=== PATIENT | male | born 1960 | race Caucasian/White ===

== ENCOUNTER 2016-11-13 03:26 | Inpatient (IN) | payer OTHER ==
[~2016-11-13] VITALS: Ht 165.1 cm; Wt 75.7 kg
--- NOTE | 2016-11-13 03:40 | NUR ---
to bed 5 a 56 yo male bibra with c/o respiratory distress. however upon arriaval to er, patient has no sob. breathing even and unlabored. with trach to mech vent, rosario well to current settings with o2 saturation greater than 95%. patient noted with low bp at 70's. hospice team lead on. gowned. awaiting for er md emanuel.
[2016-11-13] MEDS ORDERED: IV NS 0.9% 1,000 ML ONE ×2 (03:43→04:10)
[2016-11-13] MEDS ORDERED: IV SET PRIMARY PUMP SET 1 EA INFUS.SET MC ONE ×5 (03:43→12:03)
[2016-11-13] MEDS ORDERED: IV NS 0.9% 1,000 ML BAG IV ONE ×2 (04:00→04:30)
[2016-11-13 04:10] LABS: BASOPHILS % (AUTO) 0.2 % (0.0-2.0); EOSINOPHILS % (AUTO) 0.1 % (0.0-6.0); HEMATOCRIT 29 % (39-51); HEMOGLOBIN 9.4 g/dL (13.5-17.5); LYMPHOCYTES # (AUTO) 0.4 /CMM (0.8-4.8); LYMPHOCYTES % (AUTO) 2.7 % (20.0-44.0); MEAN CORPUSCULAR HEMOGLOBIN 30 PG (26.0-33.0); MEAN CORPUSCULAR HGB CONC 33 g/dl (31.0-36.0); MEAN CORPUSCULAR VOLUME 90 fL (80-96); MONOCYTES # (AUTO) 0.7 /CMM (0.1-1.30); MONOCYTES % (AUTO) 4.8 % (2.0-12.0); NEUTROPHILS # (AUTO) 12.9 /CMM (1.8-8.9); NEUTROPHILS % (AUTO) 92.2 % (43.0-81.0); PLATELET COUNT (AUTO) 296 /CMM (150-450); RDW COEFFICIENT OF VARIATION 14.7 (11.5-15.0); RED BLOOD CELL COUNT(AUTO) 3.15 MIL/uL (4.5-6.0)
[2016-11-13] MEDS ORDERED: IV SET PRIMARY 1 EA INFUS.SET MC ONE (04:10)
[2016-11-13] MEDS ORDERED: IV D5W 0 ML IV ONE (04:14)
[2016-11-13] MEDS ORDERED: VANCOMYCIN 1 GM VIAL ONE (04:15)
[2016-11-13 04:22] LABS: INR 0.93 (0.87-1.13); PROTHROMBIN TIME 9.9 SECS (9.5-12.7)
--- NOTE | 2016-11-13 04:23 | NUR ---
TRANSPORT RT INFORMED ME VENT SETTINGS NOTED. PT IS NOT AGITATED. WILL CONT TO MONITOR. Addendum: 11/13/16 at 0424 by FRANCISCO REBOLLEDO RT Amended: Links added.
[2016-11-13 04:28] LABS: LACTIC ACID 1.8 mmol/L (0.4-2.0)
[2016-11-13 04:29] LABS: TROPONIN I 0.075 ng/mL (0.00-0.056)
[2016-11-13] MEDS ORDERED: VANCOMYCIN 1 GM in IV D5W 250 ML IV ONE (04:30)
[2016-11-13] MEDS ORDERED: PIPERACILLIN /TAZOBACTAM 3.375 G in IV D5W 50 ML IV ONE (04:30)
[2016-11-13 04:35] LABS: ALBUMIN 2.6 g/dL (3.4-5.0); BILIRUBIN,DIRECT 0.1 mg/dL (0.0-0.2); BILIRUBIN,TOTAL 0.4 mg/dL (0.2-1.0); CALCIUM, SERUM 8.7 mg/dL (8.5-10.1); CREATININE 1.3 mg/dL (0.6-1.3); POTASSIUM 5.2 mmol/L (3.5-5.1); TOTAL PROTEIN, SERUM 6.3 g/dL (6.4-8.2)
[2016-11-13] MEDS ORDERED: PIPERACILLIN /TAZOBACTAM 3.375 G VIAL IV ONE (04:46)
[2016-11-13] MEDS ORDERED: IV NS 0.9% 250 ML IV ONE (04:56)
[2016-11-13] MEDS ORDERED: IOHEXOL-300 100 ML VIAL IV ONE (04:56)
--- NOTE | 2016-11-13 05:04 | NUR ---
patient to ct.
--- NOTE | 2016-11-13 05:23 | NUR ---
Nhi Armijo MD called
--- NOTE | 2016-11-13 05:34 | NUR ---
patient at this time is responsive to tactile/light pain stimuli, opens eyes, and have spontaneous movements.
[2016-11-13 05:50] LABS: APPEARANCE,URINE CLEAR (CLEAR); BILIRUBIN,URINE NEGATIVE (NEGATIVE); BLOOD, URINE 2+ Ery/uL (NEGATIVE); COLOR,URINE YELLOW (YELLOW); KETONES,URINE NEGATIVE (NEGATIVE); LEUKOCYTE ESTERASE ,URINE NEGATIVE (NEGATIVE); NITRITE, URINE NEGATIVE (NEGATIVE); PROTEIN,URINE NEGATIVE (NEGATIVE); UGLUCOSE NEGATIVE (NEGATIVE); UROBILINOGEN,URINE 0.2 EU/dL (0.2)
[2016-11-13 05:55] LABS: ADD URINE CULTURE NO; BACTERIA,URINE Rare /HPF (None Seen); SQUAMOUS EPITHELIAL CELL,UR Few /HPF (None Seen); WBC,URINE 0-3 /HPF (0-3)
[2016-11-13] MEDS ORDERED: ZOLPIDEM TARTRATE 5 MG TABLET PO PRN (06:00)
[2016-11-13] MEDS ORDERED: MAG HYDROX/AL HYDROX/SIMETH 30 ML UDC PO PRN (06:00)
[2016-11-13] MEDS ORDERED: Z GUARD REMEDY 2 OZ OINT TP PRN (06:00)
[2016-11-13] MEDS ORDERED: ONDANSETRON HCL/PF 4 MG/2 ML VIAL IVP PRN (06:00)
[2016-11-13] MEDS ORDERED: MAGNESIUM HYDROXIDE 30 ML UDC PO PRN (06:00)
[2016-11-13] MEDS ORDERED: ENOXAPARIN SODIUM 40 MG/0.4 ML DISP.SYRIN SQ ONE (06:43)
--- NOTE | 2016-11-13 07:06 | NUR ---
Report given to Preston BEGUM.
--- NOTE | 2016-11-13 07:08 | NUR ---
[facility] () phone number is [phone].
[2016-11-13] MEDS: PANTOPRAZOLE 40 MG TABLET.DR PO SCH (07:30)
--- NOTE | 2016-11-13 07:36 | NUR ---
MECH VENT AC 12 TV 500 FIO2 40% PEEP 5
--- NOTE | 2016-11-13 08:00 | NUR ---
LOCKE FR [address] TELLEZ 1200 ML OUTPUT
--- NOTE | 2016-11-13 08:30 | NUR ---
GAVE REPORT TO [facility] [address] DR PETAR PEREZ ADMITTING. DX SEPSIS. TRANSFER VIA ACLS PROTOCOL WITH RT , RN AND ERT.
[2016-11-13] MEDS ORDERED: MAG30ORA GT (08:32)
[2016-11-13] MEDS ORDERED: TRAM50TA2 GT (08:32)
[2016-11-13] MEDS ORDERED: MAGN400O6 GT (08:32)
[2016-11-13] MEDS ORDERED: TIOT18CA3 IH (08:32)
[2016-11-13] MEDS ORDERED: PANT40SU GT (08:32)
[2016-11-13] MEDS ORDERED: HYDR-552 GT (08:32)
[2016-11-13] MEDS ORDERED: PRIM50TA GT (08:32)
[2016-11-13] MEDS ORDERED: SENN8.6T6 GT (08:32)
[2016-11-13] MEDS ORDERED: HYDR-4075 GT (08:32)
[2016-11-13] MEDS ORDERED: DEXA1TAB GT (08:32)
[2016-11-13] MEDS ORDERED: DOCU50LI GT (08:32)
[2016-11-13] MEDS ORDERED: ONDA-25 GT (08:32)
[2016-11-13] MEDS ORDERED: DEXA4TAB GT (08:32)
[2016-11-13] MEDS ORDERED: MORP15TA GT (08:32)
[2016-11-13] MEDS ORDERED: DIPH25CA83 GT (08:32)
[2016-11-13] MEDS ORDERED: ENOX40DI SQ (08:32)
[2016-11-13] MEDS ORDERED: MULT-213 GT (08:32)
--- NOTE | 2016-11-13 09:00 | NUR ---
pt [facility] from E.R with dx of [facility] to[facility] well.G.tube in place with feeding on hold r/t abdominal distension.beaver catheter cdi draining bright red urine. m.d aware.safety measures in place.will continue to monitor for changes
[2016-11-13] MEDS ORDERED: FEE PK DOSING 1 MIN EA MC ONE (09:13)
[2016-11-13] MEDS ORDERED: SECONDARY IV SET 1 EA INFUS.SET MC ONE ×2 (12:03→17:07)
[2016-11-13] MEDS: PIPERACILLIN /TAZOBACTAM 3.375 G in IV D5W 50 ML IV SCH ×2 (12:10→17:17)
[2016-11-13] MEDS: IV NS 0.9% 1,000 ML IV PRN (12:10)
[2016-11-13] MEDS: ENOXAPARIN SODIUM 40 MG/0.4 ML DISP.SYRIN SQ SCH (12:16)
[2016-11-13] MEDS ORDERED: PIPERACILLIN /TAZOBACTAM 4.5 G in IV D5W 50 ML IV SCH (13:00)
[2016-11-13] MEDS: VANCOMYCIN 1 GM in IV D5W 250 ML IV SCH (17:14)
[2016-11-13 17:47] LABS: IRON, SERUM 67 ug/dl (50-175); TOTAL IRON BINDING CAPACITY 228 ug/dl (250-450)
[2016-11-13 18:30] LABS: HEMOGLOBIN 9.7 g/dL (13.5-17.5); PLATELET COUNT (AUTO) 311 /CMM (150-450)
[2016-11-13 18:37] LABS: BASOPHILS % (AUTO) 0.2 % (0.0-2.0); EOSINOPHILS % (AUTO) 0.1 % (0.0-6.0); HEMATOCRIT 30 % (39-51); LYMPHOCYTES # (AUTO) 0.7 /CMM (0.8-4.8); LYMPHOCYTES % (AUTO) 4.8 % (20.0-44.0); MEAN CORPUSCULAR HEMOGLOBIN 30 PG (26.0-33.0); MEAN CORPUSCULAR HGB CONC 33 g/dl (31.0-36.0); MEAN CORPUSCULAR VOLUME 91 fL (80-96); MONOCYTES # (AUTO) 0.5 /CMM (0.1-1.30); MONOCYTES % (AUTO) 3.7 % (2.0-12.0); NEUTROPHILS % (AUTO) 91.2 % (43.0-81.0); RDW COEFFICIENT OF VARIATION 14.9 (11.5-15.0); RED BLOOD CELL COUNT(AUTO) 3.27 MIL/uL (4.5-6.0); WHITE BLOOD COUNT (AUTO) 14.2 K/uL (4.3-11.0)
[2016-11-13 18:58] LABS: ANISOCYTOSIS 1+; LYMPHOCYTES % (MANUAL) 6 % (16-48); MONOCYTES % (MANUAL) 6 % (0-11.0); NEUTROPHILS % (MANUAL) 88 (42-76); PLATELET ESTIMATE ADEQUATE
--- NOTE | 2016-11-13 19:00 | NUR ---
RN INITIAL NOTES RECEIVED PATIENT IN BED, ASLEEP, EASILY AROUSABLE TO NAME OR LIGHT TOUCH. PATIENT IS ALERT AND ORIENTED X2, NONVERBAL TO TRACH, BUT ABLE TO NOD YES/NO, SOMETIMES MOUTHS WORDS. TRACH MIDLINE AND INTACT, ON MECHANICAL VENT AT PRESCRIBED SETTING, TOLERATING WELL, FREE FROM ANY S/S OF RESPIRATORY DISTRESS. NOTED WITH MULTIPLE SKIN CONDITIONS, WILL DOCUMENT PER PROTOCOL. JEANNIE PICC PATENT AND INTACT, FLUSHED WITH NS, ONGOING IVF PRESCRIBED. ALSO NOTED WITH LOCKE CATHETER, PATENT AND INTACT, WITH CONTINUOUS BLADDER IRRIGATION, OUTPUT NOTED TO BE PINK WITH CLOTS. GT PATENT AND INTACT, CLAMPED AT THIS TIME. WILL CONTINUE TO CLOSELY MONITOR THE PATIENT. BED IN LOWEST AND LOCKED POSITION, WITH CALL LIGHT WITHIN EASY REACH.
[2016-11-13 20:00] VITALS: BP 115/59
[2016-11-14] VITALS (16 sets, daily range): BP systolic 112–153; BP diastolic 55–84
[2016-11-14] MEDS: PIPERACILLIN /TAZOBACTAM 3.375 G in IV D5W 50 ML IV SCH ×4 (00:04→17:57)
[2016-11-14] MEDS: IV NS 0.9% 1,000 ML IV PRN ×2 (00:05→14:23)
[2016-11-14] MEDS ORDERED: SECONDARY IV SET 1 EA INFUS.SET MC ONE (00:06)
[2016-11-14] MEDS: VANCOMYCIN 1 GM in IV D5W 250 ML IV SCH ×2 (05:06→17:13)
[2016-11-14 07:05] LABS: BASOPHILS % (AUTO) 0.3 % (0.0-2.0); EOSINOPHILS % (AUTO) 0.3 % (0.0-6.0); HEMATOCRIT 24 % (39-51); HEMOGLOBIN 7.9 g/dL (13.5-17.5); LYMPHOCYTES # (AUTO) 0.7 /CMM (0.8-4.8); LYMPHOCYTES % (AUTO) 5.6 % (20.0-44.0); MEAN CORPUSCULAR HEMOGLOBIN 30 PG (26.0-33.0); MEAN CORPUSCULAR HGB CONC 33 g/dl (31.0-36.0); MEAN CORPUSCULAR VOLUME 91 fL (80-96); MONOCYTES # (AUTO) 0.5 /CMM (0.1-1.30); NEUTROPHILS # (AUTO) 10.6 /CMM (1.8-8.9); NEUTROPHILS % (AUTO) 89.8 % (43.0-81.0); PLATELET COUNT (AUTO) 267 /CMM (150-450); RDW COEFFICIENT OF VARIATION 14.8 (11.5-15.0); RED BLOOD CELL COUNT(AUTO) 2.62 MIL/uL (4.5-6.0); WHITE BLOOD COUNT (AUTO) 11.8 K/uL (4.3-11.0)
--- NOTE | 2016-11-14 07:09 | NUR ---
RN CLOSING NOTES PATIENT RESTING COMFORTABLY IN BED, CONTINUES ON MECHANICAL VENT AT PRESCRIBED SETTINGS. CONTINUOUS BLADDER IRRIGATION ONGOING, NOTED HEMATURIA WITH CLOTS. WILL ENDORSE THE PATIENT TO THE AM SHIFT NURSE FOR KARLIE
--- NOTE | 2016-11-14 07:15 | NUR ---
RN NOTES RECEIVED PATIENT AOX2-3 NOT IN ACUTE DISTRESS , RESPIRATIONS EVEN AND UNLABORED WITH SPO2 OF 100% VIA MECHANICAL VENTILATOR SETTINGS ORDERED , SR 78 ON TELE MONITOR , FC DRAINING VIA GRAVITY WITH MINIMAL BLOODY URINE WITH ONGOING CONTINUOUS BLADDER IRRIGATION , ABDOMEN IS DISTENDED UPON PALPATION , GT PATENT AND INTACT CLAMPED , JEANNIE PICC LINE PATENT AND INTACT WITH GOOD BLOOD RETURN , NS @ 100ML/HR INFUSING WELL , WOUND DRESSING AT HEAD C/D/I NO BLEEDING NOTED , ALL NEEDS ATTENDED , BED ON LOW AND LOCKED POSITION , SIDE RAILS X2 ,HOB @ 45 , WILL CONTINUE TO MONITOR
[2016-11-14 07:27] LABS: CALCIUM, SERUM 7.9 mg/dL (8.5-10.1); CREATININE 0.6 mg/dL (0.6-1.3); PHOSPHORUS 2.3 mg/dL (2.5-4.9); POTASSIUM 3.8 mmol/L (3.5-5.1)
[2016-11-14] MEDS: PANTOPRAZOLE 40 MG TABLET.DR PO SCH (07:30)
[2016-11-14 07:32] LABS: THYROID STIMULATING HORMONE 3.525 uIU/mL (0.358-3.74)
[2016-11-14] MEDS: PANTOPRAZOLE 40 MG VIAL IV SCH (08:20)
[2016-11-14] MEDS: ENOXAPARIN SODIUM 40 MG/0.4 ML DISP.SYRIN SQ SCH (08:24)
--- NOTE | 2016-11-14 08:53 | NUR ---
GRAIN ELEVATOR MAN NOTES LOVENOX HELD DUE TO HEMATURIA , H/H OF 7.9/24 , WILL CONTINUE TO MONITOR
[2016-11-14] MEDS ORDERED: Sodium Phosphate 15 MMOL in IV D5W 250 ML IV ONE (11:00)
--- NOTE | 2016-11-14 11:00 | NUR ---
RN NOTES CALLED [facility] TO REQUEST PREVIOUS RECORDS REQUESTED BY DR WIGGINS , FAX NUMBER GIVEN , AWAITING FOR MEDICAL RECORDS
[2016-11-14 11:02] LABS: ABG BASE EXCESS 9.6 mmol/L; ABG OXYGEN SATURATION 98.2 % (92.0-98.5); ABG PCO2 56.4 mmHg (35.0-45.0); ABG PH 7.416 (7.350-7.450); ABG PO2 147.2 mmHg (75.0-100.0); AaDO2 73.1 mmHg; COHb 0.7 % (0.5-1.5); MetHb 0.9 % (0.0-1.5); O2Hb 96.6 % (94.0-97.0); SITE, ABG Right Radial
--- NOTE | 2016-11-14 11:46 | NUR ---
RN NOTES DAUGHTER AT BEDSIDE ,EXPLAINED PLAN OF CARE . OBTAINED CONSENT FOR BLOOD AND RELEASE OF INFORMATION CONSENT, EXPLAINED THE RISK AND BENEFITS OF THE SAID PROCEDURE , VERBALIZED UNDERSTANDING , AGREES WITH THE BLOOD TRANSFUSION , CONSENT PLACED IN THE CHART
[2016-11-14] MEDS ORDERED: IV SET PRIMARY PUMP SET 1 EA INFUS.SET MC ONE (11:47)
[2016-11-14] MEDS ORDERED: IV NS 0.9% 250 ML IV ONE ×2 (14:09→17:45)
[2016-11-14] MEDS ORDERED: BLOOD IV SET 1 EA INFUS.SET MC ONE ×2 (14:09→17:45)
--- NOTE | 2016-11-14 15:07 | NUR ---
RN NOTES BLOOD TRANSFUSION STARTED , VERIFIED BLOOD WITH ANOTHER NURSE CHERELLE , PT IS AFEBRILE , V/S STABLE , NOT IN ACUTE DISTRESS , WILL RE ASSESS AFTER 15 MINUTES .
--- NOTE | 2016-11-14 17:22 | NUR ---
Male pt tolerated current vent settings well. No changes made. Suctioned small amount of clear thin secretions. Vent is plugged into a red outlet, alarms are set and audible. BMV is at bedside. Addendum: 11/14/16 at 1723 by HERVE JOHNSON RT Amended: Links added.
--- NOTE | 2016-11-14 18:47 | NUR ---
RN NOTES PT STABLE AT THIS TIME , NOT IN ACUTE DISTRESS , AFEBRILE , V/S STABLE BLOOD TRANSFUSION STARTED , VERIFY BLOOD WITH ANOTHER NURSE PASCUAL , WILL MONITOR POST 15 MINUTES BT
--- NOTE | 2016-11-14 19:04 | NUR ---
RN NOTES PT STABLE POST 15 MINUTES BT , NO TRANSFUSION REACTION NOTED , BP 140 / 84 , HR 69 , TEMP OF 98.5 RR 20 , WILL CONTINUE TO MONITOR
--- NOTE | 2016-11-14 19:30 | NUR ---
RN INITIAL NOTES RECEIVED PATIENT IN BED, ASLEEP, EASILY AROUSABLE TO NAME OR LIGHT TOUCH. PATIENT IS ALERT AND ORIENTED X3, NONVERBAL DUE TO TRACH, BUT ABLE TO NOD YES/NO, MOUTHS WORDS, AWARE OF HIS SURROUNDINGS. TRACH MIDLINE AND INTACT, ON MECHANICAL VENT AT PRESCRIBED SETTING, TOLERATING WELL, FREE FROM ANY S/S OF RESPIRATORY DISTRESS. JEANNIE PICC PATENT AND INTACT, FLUSHED WITH NS, ONGOING BLOOD TRANSFUSION UNIT #2/2 CURRENTLY INFUSING, VSS, FREE FROM ANY S/S OF BLOOD TRANSFUSION REACTION. ALSO NOTED WITH LOCKE CATHETER, PATENT AND INTACT, WITH CONTINUOUS BLADDER IRRIGATION, OUTPUT NOTED TO BE HEMATURIA WITH CLOTS. GT PATENT AND INTACT, CLAMPED AT THIS TIME DUE TO ABDOMINAL DISTENTION. WILL CONTINUE TO CLOSELY MONITOR THE PATIENT. BED IN LOWEST AND LOCKED POSITION, WITH CALL LIGHT WITHIN EASY REACH.
--- NOTE | 2016-11-14 21:35 | NUR ---
RN NOTES BLOOD TRANSFUSION COMPLETED. VSS, NO S/S OF BLOOD TRANSFUSION REACTION AT THIS TIME. PATIENT DENIES ANY PAIN OR DISCOMFORT. WILL CONTINUE TO CLOSELY MONITOR THE PATIENT
[2016-11-15] VITALS: BP 153/87
[2016-11-15] MEDS: PIPERACILLIN /TAZOBACTAM 3.375 G in IV D5W 50 ML IV SCH ×4 (00:39→17:05)
[2016-11-15 01:00] LABS: BASOPHILS # (AUTO) 0.2 /CMM (0.0-0.2); BASOPHILS % (AUTO) 1.8 % (0.0-2.0); EOSINOPHILS # (AUTO) 0.1 /CMM (0.0-0.7); EOSINOPHILS % (AUTO) 0.9 % (0.0-6.0); HEMATOCRIT 29 % (39-51); HEMOGLOBIN 9.9 g/dL (13.5-17.5); LYMPHOCYTES # (AUTO) 0.7 /CMM (0.8-4.8); LYMPHOCYTES % (AUTO) 8.5 % (20.0-44.0); MEAN CORPUSCULAR HEMOGLOBIN 30 PG (26.0-33.0); MEAN CORPUSCULAR HGB CONC 34 g/dl (31.0-36.0); MEAN CORPUSCULAR VOLUME 89 fL (80-96); MONOCYTES # (AUTO) 0.3 /CMM (0.1-1.30); MONOCYTES % (AUTO) 3.4 % (2.0-12.0); NEUTROPHILS # (AUTO) 7.5 /CMM (1.8-8.9); NEUTROPHILS % (AUTO) 85.4 % (43.0-81.0); PLATELET COUNT (AUTO) 227 /CMM (150-450); RDW COEFFICIENT OF VARIATION 14.2 (11.5-15.0); RED BLOOD CELL COUNT(AUTO) 3.29 MIL/uL (4.5-6.0); WHITE BLOOD COUNT (AUTO) 8.8 K/uL (4.3-11.0)
[2016-11-15 04:00] VITALS: BP 157/90
[2016-11-15 04:17] LABS: BASOPHILS % (AUTO) 0.2 % (0.0-2.0); EOSINOPHILS # (AUTO) 0.1 /CMM (0.0-0.7); EOSINOPHILS % (AUTO) 0.7 % (0.0-6.0); HEMATOCRIT 31 % (39-51); HEMOGLOBIN 10.1 g/dL (13.5-17.5); LYMPHOCYTES # (AUTO) 0.6 /CMM (0.8-4.8); LYMPHOCYTES % (AUTO) 6.8 % (20.0-44.0); MEAN CORPUSCULAR HEMOGLOBIN 30 PG (26.0-33.0); MEAN CORPUSCULAR HGB CONC 33 g/dl (31.0-36.0); MEAN CORPUSCULAR VOLUME 90 fL (80-96); MONOCYTES # (AUTO) 0.2 /CMM (0.1-1.30); MONOCYTES % (AUTO) 1.8 % (2.0-12.0); NEUTROPHILS # (AUTO) 8.3 /CMM (1.8-8.9); NEUTROPHILS % (AUTO) 90.5 % (43.0-81.0); PLATELET COUNT (AUTO) 231 /CMM (150-450); RDW COEFFICIENT OF VARIATION 14.5 (11.5-15.0); RED BLOOD CELL COUNT(AUTO) 3.39 MIL/uL (4.5-6.0); WHITE BLOOD COUNT (AUTO) 9.2 K/uL (4.3-11.0)
[2016-11-15 04:41] LABS: CALCIUM, SERUM 7.7 mg/dL (8.5-10.1); CREATININE 0.5 mg/dL (0.6-1.3); POTASSIUM 3.7 mmol/L (3.5-5.1)
[2016-11-15] MEDS: VANCOMYCIN 1 GM in IV D5W 250 ML IV SCH ×2 (05:00→16:03)
[2016-11-15 05:48] LABS: BAND % (MANUAL) 1 % (0.0-5.0); LYMPHOCYTES % (MANUAL) 9 % (16-48); MONOCYTES % (MANUAL) 9 % (0-11.0); NEUTROPHILS % (MANUAL) 81 (42-76)
[2016-11-15 05:49] LABS: PLATELET ESTIMATE ADEQUATE
[2016-11-15] MEDS: IV NS 0.9% 1,000 ML IV PRN ×2 (06:22→17:05)
--- NOTE | 2016-11-15 07:15 | NUR ---
RN INITIAL NOTES RECEIVED PT AWAKE, A/OX3. TRACH IN PLACE. ON MECH VENT WITH FF SETTINGS: AC12, TV500, DU6630%, PEEP+5. NO RESPIRATORY DISTRESS NOTED. NO SOB NOTED. NO SIGNS OF PAIN NOTED. ON TELE MONITOR, SINUS RHYTHM 60S. GT IN PLACE, CLAMPED. DISTENDED ABDOMEN NOTED. JEANNIE PICC IN PLACE. ON NS AT 100ML/HR. FC IN PLACE. ON BLADDER IRRIGATION, STILL WITH HEMATURIA. BLE ELEVATED. WILL CONTINUE TO MONITOR.
--- NOTE | 2016-11-15 07:18 | NUR ---
RN CLOSING NOTES PATIENT RESTING COMFORTABLY IN BED, DENIES PAIN, WILL ENDORSE THE PATIENT TO THE AM SHIFT NURSE FOR KARLIE
[2016-11-15 08:00] VITALS: BP 153/89
[2016-11-15] MEDS: ENOXAPARIN SODIUM 40 MG/0.4 ML DISP.SYRIN SQ SCH (08:06)
[2016-11-15] MEDS: PANTOPRAZOLE 40 MG VIAL IV SCH (08:07)
--- NOTE | 2016-11-15 09:25 | NUR ---
WOUND CARE CONSULT: PT PRESENTS WITH SURGICAL INCISIONS TO HEAD AND NECK, PRESENT ON ADMISSION. NO DRAINAGE NOTED. RECOMMEND SURGICAL FOLLOWUP. ALL SKIN PROTECTION MEASURES IN PLACE. DISCUSSED WITH NURSING STAFF. PT ON FIRST STEP MATTRESS. PT INCONTINENT OF STOOL. WILL SEE PRN. IN AGREEMENT WITH PLAN OF CARE.
[2016-11-15 12:00] VITALS: BP 153/79
[2016-11-15 16:00] VITALS: BP_SYST 151; BP_SYST 161; BP_DIAS 83
[2016-11-15] MEDS: LISINOPRIL (5MG) 5 MG TABLET PO SCH (18:43)
[2016-11-15] MEDS: ASPIRIN 81 MG TAB.CHEW PO SCH (18:43)
--- NOTE | 2016-11-15 19:30 | NUR ---
RN INITIAL NOTES RECEIVED PATIENT IN BED, ASLEEP, EASILY AROUSABLE TO NAME OR LIGHT TOUCH. PATIENT IS ALERT AND ORIENTED X3, NONVERBAL DUE TO TRACH, BUT ABLE TO NOD YES/NO, MOUTHS WORDS, AWARE OF HIS SURROUNDINGS AND SITUATION. PLAN OF CARE DISCUSSED WITH THE PATIENT, WHO NODS IN AGREEMENT REGARDING THE PLAN OF CARE. TRACH MIDLINE AND INTACT, ON MECHANICAL VENT AT PRESCRIBED SETTINGS, TOLERATING WELL, FREE FROM ANY S/S OF RESPIRATORY DISTRESS. JEANNIE PICC PATENT AND INTACT, FLUSHED WITH NS,IVF ONGOING PRESCRIBED. ALSO NOTED WITH LOCKE CATHETER, PATENT AND INTACT, WITH CONTINUOUS BLADDER IRRIGATION, OUTPUT NOTED TO BE HEMATURIA WITH OCCASIONAL CLOTS, OUTPUT PINK IN COLOR. GT PATENT AND INTACT, CLAMPED EXCEPT FOR MEDS AT THIS TIME DUE TO ABDOMINAL DISTENTION. WILL CONTINUE TO CLOSELY MONITOR THE PATIENT. BED IN LOWEST AND LOCKED POSITION, WITH CALL LIGHT WITHIN EASY REACH.
[2016-11-15 20:00] VITALS: BP 151/89
[2016-11-15] MEDS: ATORVASTATIN 40 MG TABLET PO SCH (21:09)
[2016-11-15] MEDS: CARVEDILOL 3.125 MG TABLET PO SCH (21:09)
[2016-11-15] MEDS: ACETAMINOPHEN 325 MG TABLET PO PRN (21:09)
[2016-11-16] VITALS (7 sets, daily range): BP systolic 138–178; BP diastolic 79–92
[2016-11-16] MEDS: PIPERACILLIN /TAZOBACTAM 3.375 G in IV D5W 50 ML IV SCH ×5 (00:54→23:05)
[2016-11-16] MEDS: IV NS 0.9% 1,000 ML IV PRN ×2 (05:08→18:58)
[2016-11-16] MEDS: VANCOMYCIN 1 GM in IV D5W 250 ML IV SCH (05:09)
--- NOTE | 2016-11-16 06:59 | NUR ---
RN CLOSING NOTES PATIENT RESTING COMFORTABLY IN BED, LOCKE CATH OUTPUT = HEMATURIA, ONGOING BLADDER IRRIGATION, WILL ENDORSE THE PATIENT TO THE AM SHIFT NURSE FOR KARLIE
[2016-11-16 07:01] LABS: CALCIUM, SERUM 7.7 mg/dL (8.5-10.1); CREATININE 0.5 mg/dL (0.6-1.3); POTASSIUM 3.2 mmol/L (3.5-5.1)
--- NOTE | 2016-11-16 07:15 | NUR ---
RN INITIAL NOTE RECEIVED PT IN BED, SLEEPING. EASILY AROUSED. ABLE TO MAKE NEEDS KNOWN. NO COMPLAINTS OF PAIN AT THIS TIME. SINUS RHYTHM ON TELE MONITOR. RESPIRATIONS ARE EVEN AND UNLABORED. NO S/S OF RESPIRATORY DISTRESS OR SOB. TRACH MIDLINE, AND INTACT. PORTEX #7. AC-12, TV-500, FI02 40%, PEEP 5. SATING WELL. GTUBE CLAMPED. PLACEMENT VERIFIED. LOCKE CATH DRAINING TO GRAVITY, WITH CONTINUOUS IRRIGATION. RIGHT UPPER ARM PICC LINE, FLUSHED AND PATENT. SKIN WARM AND DRY TO TOUCH. SAFETY PRECAUTIONS IMPLEMENTED, BED IN LOCKED, LOW POSITION. TWO SIDE RAILS UP. CALL LIGHT AND BELONGINGS WITHIN EASY REACH. WILL CONTINUE TO MONITOR.
[2016-11-16] MEDS: PANTOPRAZOLE 40 MG VIAL IV SCH (07:28)
--- NOTE | 2016-11-16 07:35 | NUR ---
Received male alysa pt on a mechanical vent. Pt alysa is secure. Vent is plugged into a red outlet, alarms are set and audible, and BMV is at bedside. Addendum: 11/16/16 at 0736 by HERVE JOHNSON RT Amended: Links added.
[2016-11-16] MEDS: ASPIRIN 81 MG TAB.CHEW PO SCH (08:55)
[2016-11-16] MEDS: LISINOPRIL (5MG) 5 MG TABLET PO SCH (08:56)
[2016-11-16] MEDS: ENOXAPARIN SODIUM 40 MG/0.4 ML DISP.SYRIN SQ SCH (08:57)
[2016-11-16] MEDS: CARVEDILOL 3.125 MG TABLET PO SCH ×2 (08:59→21:03)
[2016-11-16] MEDS: ACETAMINOPHEN 325 MG TABLET PO PRN (09:13)
[2016-11-16] MEDS: POTASSIUM CHLORIDE 20 MEQ TAB.PRT.SR PO SCH ×2 (11:11→12:15)
[2016-11-16] MEDS ORDERED: GLYTROL 1,000 ML BAG GT PRN ×4 (14:00→17:02)
[2016-11-16] MEDS: HYDROCODONE/APAP 5/325MG 1 EACH TABLET PO PRN (16:52)
--- NOTE | 2016-11-16 19:15 | NUR ---
RN CLOSING NOTE ALL MD ORDERS CARRIED OUT. PT KEPT CLEAN AND DRY. SAFETY PRECAUTIONS IN PLACE AT ALL TIMES. REPORT WILL BE GIVEN TO PM RN FOR KARLIE.
--- NOTE | 2016-11-16 19:30 | NUR ---
RECEIVED PATIENT IN BED, PATIENT IS LETHARGIC BUT EASILY AROUSE TO TOUCH. PATIENT IS VENT DEPENDENT NO DISTRESS NOTED SATURATION > 95% PATIENT IS NON-VERBAL BUT ABLE TO NOD TO ANSWER THE QUESTIONS YES/ NO. SAFETY PRECAUTIONS IMPLEMENTED. CONTINUE TO MONITOR
--- NOTE | 2016-11-16 20:00 | NUR ---
SBP > 170 DR MONTGOMERY NOTIFIED ORDERS RECEIVED WILL ADMINISTER HYDRALAZINE NEEDED
[2016-11-16] MEDS: ATORVASTATIN 40 MG TABLET PO SCH (21:03)
[2016-11-17] VITALS: BP 177/90
[2016-11-17] MEDS: hydrALAZINE HCL 25 MG TABLET PO PRN ×3 (00:35→11:50)
[2016-11-17] MEDS: HYDROCODONE/APAP 5/325MG 1 EACH TABLET PO PRN (00:35)
--- NOTE | 2016-11-17 00:40 | NUR ---
PATIENT'S BP REMAINS HIGH - HYDRALAZINE GIVEN ORDERED PATIENT C/O BILAT LEGS PAIN- NORCO GIVEN WILL REASSESS THE EFFECT OF BOTH MEDICATIONS
--- NOTE | 2016-11-17 02:02 | NUR ---
PATIENT IS CALM AND SLEEPING
[2016-11-17 04:00] VITALS: BP 167/79
[2016-11-17] MEDS: PIPERACILLIN /TAZOBACTAM 3.375 G in IV D5W 50 ML IV SCH ×4 (06:04→23:40)
[2016-11-17 06:56] LABS: CREATININE 0.5 mg/dL (0.6-1.3); POTASSIUM 3.5 mmol/L (3.5-5.1)
--- NOTE | 2016-11-17 07:20 | NUR ---
RN INITIAL NOTES: Rec'd pt awake on bed, A/O x3, able to make needs known, not in any distress. Pt on mech vent via trach (Portex 7) w/ ff settings: AC 12, TV 500, FiO2 40%, PEEP 5, saturating at 100%. On telemonitor, SR w/ HR of 83 bpm. Pt has patent & intact PEG, on continuous tube feeding Glytrol 55 cc/hr infusing well. Pt has JEANNIE PICC line patent & intact w/ NS 1L x 100 cc/hr infusing well w/ no signs of infection/ infiltration noted. Pt has patent & intact FC on cont irrigation, noted light red output. Will turn, reposition & offload heels as per protocol. Provided comfort & safety measures. Call light placed w/in reach. Bed kept low & in locked position. Will continue to monitor.
[2016-11-17 08:00] VITALS: BP 171/84
[2016-11-17] MEDS: LISINOPRIL (5MG) 5 MG TABLET PO SCH (09:05)
[2016-11-17] MEDS: PANTOPRAZOLE 40 MG VIAL IV SCH (09:05)
[2016-11-17] MEDS: CARVEDILOL 3.125 MG TABLET PO SCH ×2 (09:06→21:20)
[2016-11-17] MEDS: IV NS 0.9% 1,000 ML IV PRN ×2 (10:20→22:45)
--- NOTE | 2016-11-17 10:20 | NUR ---
RN NOTES: Verified w/ Dr. Derrick streeter to continue feeding. Re: bladder irrigation, can taper the rate and monitor.
--- NOTE | 2016-11-17 10:30 | NUR ---
RN NOTES: Pt seen and examined by Dr. Meza. As per Dr. Meza to call pt's neurosurgeon Dr. 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 LVMM to Dr. Berumen contact # [phone]. Family at made aware.
--- NOTE | 2016-11-17 12:36 | NUR ---
RN NOTES: Rec'd call from Dr. Berumen's office, spoke w/ Delilah, agreed to remove the pt sole. Dr. Meza made aware.
--- NOTE | 2016-11-17 13:00 | NUR ---
RN NOTES: As per Dr. Meza, prepare at bedside staple and suture removal kit.
[2016-11-17 13:33] LABS: CALCIUM, SERUM 8.4 mg/dL (8.5-10.1); CREATININE 0.5 mg/dL (0.6-1.3); POTASSIUM 3.5 mmol/L (3.5-5.1)
[2016-11-17 16:00] VITALS: BP 165/78
--- NOTE | 2016-11-17 19:12 | NUR ---
RN CLOSING NOTES: No acute changes noted w/in shift. Pt tolerated mech vent settings, saturating at 97%. Secretions suctioned. On telemonitor, still SR w/ HR of 85 bpm. PEG kept patent & intact on continuous tube feeding Glytrol 55 cc/hr infusing well, no residual noted w/in shift. JEANNIE PICC line kept patent & intact w/ NS 1L x 100 cc/hr infusing well w/ no signs of infection/ infiltration noted. FC kept patent & intact on cont irrigation, still noted w/ light hematuria and some clots. Wound care done. Turned, repositioned & offloaded heels q2h. Kept well rested & comfortable. Call light placed w/in reach. Bed kept low & in locked position. Endorsed to PM RN for KARLIE.
[2016-11-17 20:00] VITALS: BP 175/89
[2016-11-17] MEDS: ATORVASTATIN 40 MG TABLET PO SCH (21:20)
[2016-11-18] VITALS: BP 181/88
[2016-11-18] MEDS: hydrALAZINE HCL 25 MG TABLET PO PRN (00:35)
[2016-11-18 04:00] VITALS: BP 184/92
[2016-11-18] MEDS: HYDROCODONE/APAP 5/325MG 1 EACH TABLET PO PRN (04:35)
[2016-11-18 05:18] VITALS: BP 177/90
[2016-11-18] MEDS: PIPERACILLIN /TAZOBACTAM 3.375 G in IV D5W 50 ML IV SCH ×2 (05:21→11:06)
--- NOTE | 2016-11-18 06:32 | NUR ---
RN NOTE PT REMAINS IN NO ACUTE DISTRESS IN BED. PT DID NOT HAVE ANY SIGNIFICANT CHANGE IN CONDITION DURING SHIFT. PT IS A/O X 1 AND ABLE TO MAKE NEEDS KNOWN BY NODDING HEAD YES/NO. PT IS TOLERATING VENT SETTING WELL WITH O2 SAT @ 98%. PT HAS GTUBE THAT IS CLEAN DRY INTACT AND PATENT WITH GLYTROL @ 55ML/HR AND TOLERATING WELL WITH 0 RESIDUAL. PT HAS CONTINUOUS IRRIGATION VIA F/C. F/C IRRIGATION IS SANGUINOUS. PER MD ORDER TAPER IRRIGATION. PT HAS JEANNIE PICC THAT IS CLEAN DRY INTACT AND PATENT WITH NS @ 100ML/HR. WILL ENDORSE TO AM RN FOR CONTINUITY OF CARE.
[2016-11-18 07:21] LABS: CALCIUM, SERUM 8.2 mg/dL (8.5-10.1); CREATININE 0.4 mg/dL (0.6-1.3); POTASSIUM 3.2 mmol/L (3.5-5.1)
[2016-11-18 08:00] VITALS: BP 176/92
--- NOTE | 2016-11-18 08:00 | NUR ---
TELE1/RN AM SHIFT INITIAL NOTES RECEIVED PT ASLEEP IN BED, AROUSEABLE. PT A/O X 1 ABLE TO MOUTH WORDS. DENIES PAIN. ON VENTILATOR SET AT PRESCRIBED RATES, SATURATING @ 100%, SUCTIONED FOR AIRWAY CLEARANCE. LUNG SOUNDS CLEAR. ON TELE WITH SINUS RHYTHM, HR 83. WITH ON GOING IV INFUSION OF NS @ 100CC/HR, PICC LINE PATENT WITH POSITIVE BLOOD RETURN. GTF @ 55CC/HR, NO GSTRIC RESIDUAL NOTED, FLUSHED, PATENT. CONTINUOUS LOCKE CATHETER IRRIGATION, NOTED WITH BLOOD TINGED URINE OUTPUT. SURGICAL GAB IN THE HEAD INTACT AND DRY. PT IS COMFORTABLE AT THIS TIME. SCHEDULED AM MEDS TO BE GIVEN. CL WITHIN REACHED AND SAFETY MAINTAINED. ON GOING MONITORING.
[2016-11-18] MEDS: PANTOPRAZOLE 40 MG VIAL IV SCH (09:14)
[2016-11-18] MEDS: LISINOPRIL (5MG) 5 MG TABLET PO SCH (09:15)
[2016-11-18] MEDS: CARVEDILOL 3.125 MG TABLET PO SCH (09:15)
[2016-11-18] MEDS: POTASSIUM CHLORIDE 20 MEQ POWDER PACKET GT SCH ×2 (11:06→14:01)
[2016-11-18] MEDS: IV NS 0.9% 1,000 ML IV PRN (11:06)
[2016-11-18] MEDS ORDERED: SECONDARY IV SET 1 EA INFUS.SET MC ONE (11:07)
[2016-11-18 12:00] VITALS: BP 161/87
--- NOTE | 2016-11-18 12:38 | NUR ---
TELE1/RN ROUNDS - DR. HEBERT PT SEEN BY DR. HEBERT, REMOVED HEAD SUTURES NOTED PUSS FROM HEAD WOUND ORDERED WOUND CULTURE AND TREATMENT. ORDERS NOTED AND CARRIED OUT. MONITORING CONTINUED.
[2016-11-18] MEDS ORDERED: PIPE3.379 IV (12:49)
[2016-11-18] MEDS ORDERED: MUPI22OI7 TP (12:49)
[2016-11-18] MEDS ORDERED: MUPIROCIN OINT 2% 22 GM TUBE TP SCH (13:00)
[2016-11-18 13:16] LABS: CALCIUM, SERUM 8.4 mg/dL (8.5-10.1); CREATININE 0.5 mg/dL (0.6-1.3); POTASSIUM 4.2 mmol/L (3.5-5.1)
--- NOTE | 2016-11-18 13:37 | NUR ---
TELE2/RN CRITICAL LAB VALUE SPOKE TO DR. HEBERT FOR ANOTHER CRITICAL LAB VALUE FOR CO2 42. ORDERS RECEIVED TO PT DIAMOX 500MG VIA GT ONCE AND CHANGE VENT SETTING RATE AC FROM 12 TO 16. ORDERS NOTED AND CARRIED. ON GOING MONITORING.
--- NOTE | 2016-11-18 13:54 | NUR ---
VENT CHANGES MADE EVIE ISIDRO: RATE 16 Addendum: 11/18/16 at 1357 by NEVAEH PRINCE RT Amended: Links added.
[2016-11-18] MEDS ORDERED: acetaZOLAMIDE 250 MG TABLET GT ONE (14:00)
[2016-11-18 16:00] VITALS: BP 134/85
--- NOTE | 2016-11-18 16:00 | NUR ---
TELE1/RN REPORT - SNF REPORT GIVEN TO NURSE GATO FLORES OF [facility] FOR ADMISSION. TRANSPORT EXPECTED TO ARRIVE @ 1600.
--- NOTE | 2016-11-18 17:15 | NUR ---
TELE1/ADULT EDUCATION PROFESSIONAL - SNF PT LEFT TELE1 UNIT IN STABLE CONDITION WITH LOCKE CATHETER INTACT AND PICC LINE. REPORT GIVEN TO TRANSPORT PERSONNEL.
== END 2016-11-18 18:19 | DRG 720 ==
LOC: ER 03:31 → TELE1 06:00 → TELE-TD 20:36 → TELE1 11-15 11:02
PROVIDERS: ADMIT Internal Medicine; ATTEND Internal Medicine
PROC: 5A1955Z Respiratory Ventilation, Greater than 96 Consecutive Hours (ICD-10-PCS; principal; 2016-11-13)
PROC: 30233N1 Transfusion of Nonautologous Red Blood Cells into Peripheral Vein, Percutaneous Approach (ICD-10-PCS; principal; 2016-11-13)
DX: A41.9 Sepsis, unspecified organism (principal); I21.4 Non-ST elevation (NSTEMI) myocardial infarction; J96.21 Acute and chronic respiratory failure with hypoxia; I50.23 Acute on chronic systolic (congestive) heart failure; G93.41 Metabolic encephalopathy; J15.6 Pneumonia due to other Gram-negative bacteria; Z93.0 Tracheostomy status; I11.0 Hypertensive heart disease with heart failure; J44.0 Chronic obstructive pulmonary disease with (acute) lower respiratory infection; C34.31 Malignant neoplasm of lower lobe, right bronchus or lung; R53.2 Functional quadriplegia; Z99.81 Dependence on supplemental oxygen; I50.33 Acute on chronic diastolic (congestive) heart failure; E44.0 Moderate protein-calorie malnutrition; G40.909 Epilepsy, unspecified, not intractable, without status epilepticus; E88.09 Other disorders of plasma-protein metabolism, not elsewhere classified; E11.9 Type 2 diabetes mellitus without complications; F32.9 Major depressive disorder, single episode, unspecified; E87.5 Hyperkalemia; J96.22 Acute and chronic respiratory failure with hypercapnia; Z93.1 Gastrostomy status; K21.9 Gastro-esophageal reflux disease without esophagitis; Z87.891 Personal history of nicotine dependence; D50.0 Iron deficiency anemia secondary to blood loss (chronic); Z85.118 Personal history of other malignant neoplasm of bronchus and lung; Z85.841 Personal history of malignant neoplasm of brain; Z98.2 Presence of cerebrospinal fluid drainage device; I25.2 Old myocardial infarction; N40.0 Benign prostatic hyperplasia without lower urinary tract symptoms; G93.89 Other specified disorders of brain; R18.8 Other ascites; R31.9 Hematuria, unspecified; C79.31 Secondary malignant neoplasm of brain; Z68.27 Body mass index [BMI] 27.0-27.9, adult; E86.1 Hypovolemia; E87.1 Hypo-osmolality and hyponatremia; J98.11 Atelectasis; K57.90 Diverticulosis of intestine, part unspecified, without perforation or abscess without bleeding
CPT/HCPCS: 31720; 36415; 36600; 70450-TC; 71010-TC; 71260-TC; 72193-TC; 74160-TC; 80048-TC; 80061-TC; 80076-TC; 80202-TC; 81000-TC; 82272-TC; 83540-TC; 83605-TC; 83735-TC; 83880; 84100-TC; 84443-TC; 84484-TC; 85025-TC; 85730-TC; 86850-TC; 86921-TC; 87040-TC; 87070-TC; 87086-TC; 93307-TC; 94003-TC; 94760-TC; 94762-TC; 94799-TC; 99082-TC; A4217; A4606; A6402; A6403; A9563; C9113; J1650; J2543; J3370; J7030; J7050; J7060; P9016-BL; Q9967; Z7610

== ENCOUNTER 2016-12-01 15:55 | Inpatient (IN) | payer OTHER ==
[~2016-12-01] VITALS: Ht 177.8 cm; Wt 66.4 kg
--- NOTE | 2016-12-01 00:12 | NUR ---
RN NOTES DR PUTNAM IN THE FLOOR, ASK HIM FOR THE GT FEEDING OF THE PT, WITH ORDER TO START GLUCERNA 1.0 AT 55ML/HR.
[~2016-12-01 15:55] MED LIST: DEXA1TAB GT; DEXA4TAB GT; DIPH25CA83 GT; DOCU50LI GT; ENOX40DI SQ; HYDR-4075 GT; HYDR-552 GT; MAG30ORA GT; MAGN400O6 GT; MORP15TA GT; MULT-213 GT; MUPI22OI7 TP; ONDA-25 GT; PANT40SU GT; PIPE3.379 IV; PRIM50TA GT; SENN8.6T6 GT; TIOT18CA3 IH; TRAM50TA2 GT
[2016-12-01 16:00] VITALS: BP 118/58
--- NOTE | 2016-12-01 16:00 | NUR ---
RT PT BROUGHT INTO ER BY PARAMEDICS, PT RECEIVED TRACHED WITH A PORTEX 7. PT IS AWAKE AND APPEARS TO BE ALERT. PT PLACED ON VENTILATOR WITH NOTED SETTINGS BY FACILITY. VENT ALARMS ARE SET AND AUDIBLE WITH BVM BY BEDSIDE. VAULT INSTALLER CUFF PRESSURE NOTED. VENT IS PLUGGED INTO RED OUTLET. SX SMALL THIN WHITE/CLEAR SECRETIONS. NO RESPIRATORY DISTRESS NOTED AT THIS TIME, WILL CONTINUE TO MONITOR. Addendum: 12/01/16 at 1809 by TONA JEREZ RT Amended: Links added.
--- NOTE | 2016-12-01 16:00 | NUR ---
PT HANNY Alejandra FROM [facility] FOR [facility], PT WAS FOUND ON THE FLOOR. NOTED VENT/TRACH, GTUBE, FC AND JEANNIE PICC LINE TLC. NAD NOTED. PT ABLE TO MAKE NEEDS KNOWN. VSS. SEEN BY MD FOR EVAL. SAFETY AND COMFORT MEASURES PROVIDED. WILL MONITOR.
--- NOTE | 2016-12-01 16:15 | NUR ---
SOFTWARE CONFIGURATION ENGINEER AT FOR BLOOD DRAW.
[2016-12-01 16:23] LABS: BASOPHILS # (AUTO) 0.2 /CMM (0.0-0.2); BASOPHILS % (AUTO) 1.7 % (0.0-2.0); EOSINOPHILS % (AUTO) 0.2 % (0.0-6.0); HEMATOCRIT 30 % (39-51); HEMOGLOBIN 9.8 g/dL (13.5-17.5); LYMPHOCYTES # (AUTO) 1.7 /CMM (0.8-4.8); LYMPHOCYTES % (AUTO) 12.4 % (20.0-44.0); MEAN CORPUSCULAR HEMOGLOBIN 30 PG (26.0-33.0); MEAN CORPUSCULAR HGB CONC 32 g/dl (31.0-36.0); MEAN CORPUSCULAR VOLUME 91 fL (80-96); MONOCYTES # (AUTO) 0.6 /CMM (0.1-1.30); MONOCYTES % (AUTO) 4.1 % (2.0-12.0); NEUTROPHILS # (AUTO) 11.2 /CMM (1.8-8.9); NEUTROPHILS % (AUTO) 81.6 % (43.0-81.0); PLATELET COUNT (AUTO) 392 /CMM (150-450); RDW COEFFICIENT OF VARIATION 13.1 (11.5-15.0); RED BLOOD CELL COUNT(AUTO) 3.33 MIL/uL (4.5-6.0); WHITE BLOOD COUNT (AUTO) 13.7 K/uL (4.3-11.0)
[2016-12-01 16:34] LABS: INR 0.97 (0.87-1.13); PROTHROMBIN TIME 10.1 SECS (9.5-12.7)
[2016-12-01] MEDS ORDERED: CALC1TAB30 GT (16:34)
[2016-12-01] MEDS ORDERED: PIPE3.377 IV (16:34)
[2016-12-01] MEDS ORDERED: BISA10SU8 RC (16:34)
[2016-12-01] MEDS ORDERED: ENOX30DI5 SQ (16:34)
[2016-12-01] MEDS ORDERED: BLOO-668 IN (16:34)
[2016-12-01] MEDS ORDERED: MORP10SO GT (16:34)
[2016-12-01] MEDS ORDERED: LACT10SO7 GT (16:34)
[2016-12-01] MEDS ORDERED: INSU100V27 SQ (16:34)
[2016-12-01] MEDS ORDERED: LISI-603 GT (16:34)
[2016-12-01] MEDS ORDERED: NA P133E RC ×2 (16:34→16:36)
[2016-12-01 16:36] LABS: ALANINE AMINOTRANSFERASE 21 U/L (12-78); ALBUMIN 2.6 g/dL (3.4-5.0); ALKALINE PHOSPHATASE 103 U/L (46-116); ASPARTATE AMINOTRANSFERASE 16 U/L (15-37); BILIRUBIN,TOTAL 0.2 mg/dL (0.2-1.0); CALCIUM, SERUM 10.3 mg/dL (8.5-10.1); CHLORIDE 99 mmol/L (98-107); CREATININE 0.5 mg/dL (0.6-1.3); GLUCOSE 136 mg/dL (74-106); POTASSIUM 5.2 mmol/L (3.5-5.1); SODIUM SERUM 141 mmol/L (136-145); TOTAL PROTEIN, SERUM 7.4 g/dL (6.4-8.2); UREA NITROGEN, BLOOD 14 mg/dL (7-18)
[2016-12-01 16:38] LABS: CARBON DIOXIDE 42 mmol/L (21-32); TROPONIN I < 0.017 ng/mL (0.00-0.056)
[2016-12-01] MEDS ORDERED: TIOT18CA3 IH (16:39)
[2016-12-01] MEDS ORDERED: NUT.237L31 GT (16:39)
[2016-12-01] MEDS ORDERED: IPRA3AMP IH ×2 (16:39)
[2016-12-01] MEDS ORDERED: DIATR MEGLU/DIATRIZOATE SODIUM 120 ML BOTTLE (GASTROGRAPHIN) ONE (16:43)
[2016-12-01 16:46] LABS: APPEARANCE,URINE Turbid (CLEAR); BILIRUBIN,URINE Negative (NEGATIVE); BLOOD, URINE Large Ery/uL (NEGATIVE); COLOR,URINE Yellow (YELLOW); KETONES,URINE Negative (NEGATIVE); LEUKOCYTE ESTERASE ,URINE Negative (NEGATIVE); NITRITE, URINE Positive (NEGATIVE); PH,URINE 7.5 (5.0-8.0); PROTEIN,URINE >=300 mg/dl (NEGATIVE); UGLUCOSE Negative (NEGATIVE); UROBILINOGEN,URINE 0.2 EU/dL (0.2)
--- NOTE | 2016-12-01 17:00 | NUR ---
DR. REYES AT BS AND ASSISTED FOR GTUBE/PEG REPLACEMENT. PT TOLERATED WELL. DRY DRESING LEFT IN PLACE. XRAY AT BS FOR CHECK OF PLACEMENT.
[2016-12-01 17:14] LABS: BACTERIA,URINE Many /HPF (None Seen); RBC,URINE TOO NUMEROUS TO COUN /HPF (0-2); SQUAMOUS EPITHELIAL CELL,UR Few /HPF (None Seen)
[2016-12-01 17:31] LABS: LYMPHOCYTES % (MANUAL) 11 % (16-48); MONOCYTES % (MANUAL) 5 % (0-11.0); NEUTROPHILS % (MANUAL) 84 (42-76)
[2016-12-01] MEDS ORDERED: IV NS 0.9% 500 ML IV ONE (17:57)
[2016-12-01] MEDS ORDERED: IV SET PRIMARY PUMP SET 1 EA INFUS.SET MC ONE ×2 (17:57→21:39)
[2016-12-01] MEDS ORDERED: IV NS 0.9% 500 ML BAG IV ONE (18:00)
--- NOTE | 2016-12-01 18:18 | NUR ---
CALLED NURSING SUP. FOR TELE BED
[2016-12-01] MEDS ORDERED: CEFTRIAXONE 1 G in IV D5W 50 ML IV ONE (18:30)
[2016-12-01] MEDS ORDERED: IV SET PRIMARY 1 EA INFUS.SET MC ONE (18:35)
[2016-12-01] MEDS ORDERED: CEFTRIAXONE 1GM BAG (ER ONLY) 50 ML IV ONE (18:35)
--- NOTE | 2016-12-01 19:02 | NUR ---
REPORT REC'D FROM KEL DEL CASTILLO FOR KARLIE.
--- NOTE | 2016-12-01 19:07 | NUR ---
PT WAS SITTING AT THE END OF THE BED AND PT DISCONNECTED THE VENT. PT WAS ASSISTED BACK INTO THE BED AND VENT RECONNECTED. PT WAS ADJUSTED IN THE BED AND MADE MORE COMFORTABLE. PT HAS A BRUISE ON RT LY. PT HAS LOCKE TO GRAVITY. RUE PICC LINE, GTUBE, AND IS MOUTHING WORDS. PT IS ON THE MONITOR AND CONTINUOUS PULSE OX.
--- NOTE | 2016-12-01 19:10 | NUR ---
VENT SETTINGS ARE FOLLOWS: AC12, TV 500, FIO2 40%, PEEP 5.
--- NOTE | 2016-12-01 20:00 | NUR ---
REPORT GIVEN TO KEL DIAZ
[2016-12-01 20:20] VITALS: BP 149/97
--- NOTE | 2016-12-01 20:20 | NUR ---
RN NOTES ADMITTED A 56 YEARS OLD MALE PT FROM ER WITH PRIMARY DIAGNOSIS OF ACUTE ENCEPHALOPATHY UNDER DR PUTNAM. PT ALERT AND ORIENTED 1, NO SOB, NOT IN DISTRESS, ON MECHANICAL VENT WITH SETTINGS IN PLACED AND TOLERATED WELL. ATTACHED TO TELE MONITOR WHICH READS SINUS TACH WITH HEART RATE AT 96. WITH PICC LINE AT RIGHT UPPER ARM WITH 3 LUMEN, FLUSHING WELL. GT PATENT AND INTACT . LOCKE INTACT WITH CLEAR YELLOW URINE OUTPUT. INITIAL PHYSICAL ASSESSMENT DONE, WITH SKIN CONDITION PICTURES TAKEN AND FILED IN THE CHART. WOUND AND SKIN CARE DONE. SAFETY MEASURES IN PLACED. KEPT COMFORTABLE AND ATTENDED. AWAITING FOR ADITTING ORDERS. WILL CONTINUE TO MONITOR PT.
[2016-12-01] MEDS ORDERED: hydrALAZINE HCL 10 MG TABLET GT PRN (21:00)
[2016-12-01] MEDS ORDERED: MAG HYDROX/AL HYDROX/SIMETH 30 ML UDC GT PRN (21:00)
[2016-12-01] MEDS ORDERED: GLYTROL 1,000 ML BAG GT SCH (21:00)
[2016-12-01] MEDS ORDERED: diphenhydrAMINE HCL 25 MG CAPSULE MC PRN (21:00)
[2016-12-01] MEDS ORDERED: MAGNESIUM HYDROXIDE 30 ML UDC GT PRN (21:00)
[2016-12-01] MEDS ORDERED: ONDANSETRON HCL 4 MG/5 ML SOLUTION GT PRN (21:00)
[2016-12-01] MEDS ORDERED: PIPERACILLIN /TAZOBACTAM 3.375 G VIAL IV SCH (21:00)
[2016-12-01] MEDS ORDERED: HYDROCODONE/APAP 5/325MG 1 EACH TABLET GT PRN (21:00)
[2016-12-01] MEDS ORDERED: BISACODYL SUPP (10 MG) 10 MG/SUPP.RECT SUPP.RECT RC PRN (21:00)
[2016-12-01] MEDS ORDERED: NA PHOS,M-B/NA PHOS,DI-BA 1 EA ENEMA RC PRN ×2 (21:00)
--- NOTE | 2016-12-01 21:15 | NUR ---
RN NOTES ADMITTING ORDERS RECEIVED. NOTED AND CARRIED OUT.
--- NOTE | 2016-12-01 21:30 | NUR ---
RN NOTES PT WAS NOTED RESTLESS, GETTING OUT OF BED AND SEEN HOLDING THE G TUBE AND LOCKE CATH. FREQUENT VISIT WITH THE PT, REORIENT AND KEEP PT PT, WILL CONTINUE TO MONITOR PT.
[2016-12-01] MEDS ORDERED: SECONDARY IV SET 1 EA INFUS.SET MC ONE (21:38)
[2016-12-01] MEDS ORDERED: IV NS 0.9% 250 ML IV ONE (21:39)
--- NOTE | 2016-12-01 21:45 | NUR ---
RN NOTES PT IS NOTED CONTINOUSLY HOLDING HIS G TUBE, LOCKE CATH AND EVEN HIS TRACH. LESS RESTRICTIVE MEASURES DONE BUT PT STILL HOLDING THE TUBES. DR PUTNAM MADE AWARE AND ORDERED BILATERAL WRIST RESTRAINT, AND ATIVAN FOR ANXIETY AND AGITATION. NOTAED AND CARRIED OUT. WILL CONTINUE TO MONITOR PT.
[2016-12-01] MEDS: ZOSYN IVPB 3.375 G in IV D5W 50ml IV SCH (21:48)
[2016-12-01] MEDS: TRAMADOL HCL 50 MG TABLET GT SCH (21:48)
[2016-12-01] MEDS: LACTULOSE 10 G/15 ML UDC (PYXIS) GT SCH (21:48)
[2016-12-01] MEDS: SENNOSIDES 8.6 MG TABLET GT SCH (21:49)
[2016-12-01] MEDS ORDERED: LORAZEPAM INJ 2 MG/ML VIAL IV PRN (23:00)
[2016-12-01] MEDS ORDERED: IPRATROPIUM NEB FS 0.5 MG/2.5 ML AMPUL.NEB NEB PRN (23:30)
[2016-12-02] VITALS: BP 163/95
--- NOTE | 2016-12-02 00:12 | NUR ---
RN NOTES DR PUTNAM IN THE FLOOR, ASK HIM FOR THE GT FEEDING OF THE PT, WITH ORDER TO START GLUCERNA 1.0 AT 55ML/HR.
--- NOTE | 2016-12-02 00:34 | NUR ---
RN NOTES VISITED BY DR PUTNAM, SEEN AND EXAMINED THE PT. AND SEEN G TUBE WAS PULLED OUT BY THE PT. REINSERTED BY DR PUTNAM TO KEEP GT SITE OPEN AND COVERED WITH DRESSING. PER DR PUTNAM, DO NOT USE THE GT FOR FEEDING AND MEDS AND PT FOR GI CONSULT.
[2016-12-02] MEDS: BLOOD SUGAR DIAGNOSTIC 1 EACH STRIP IN SCH ×4 (00:42→17:57)
--- NOTE | 2016-12-02 00:42 | NUR ---
RN NOTES BLOOD SUGAR CHECKED 102 MG/DL, NO INSULIN COVERAGE PER SLIDING SCALE AND GT FEEING IS ON HOLD. DR PUTNAM MADE AWARE WILL ORDER IV FLUID.
[2016-12-02] MEDS ORDERED: ALBUTEROL FS 2.5 MG/3 ML VIAL.NEB NEB PRN (01:30)
[2016-12-02] MEDS ORDERED: IV D5/ 0.9% NACL 1,000 ML IV ONE (03:25)
[2016-12-02] MEDS: IV D5/ 0.9% NACL 1,000 ML IV PRN (03:31)
[2016-12-02] MEDS: ZOSYN IVPB 3.375 G in IV D5W 50ml IV SCH ×4 (03:31→21:44)
[2016-12-02 04:00] VITALS: BP 150/88
[2016-12-02] MEDS: LACTULOSE 10 G/15 ML UDC (PYXIS) GT SCH ×3 (05:00→21:45)
--- NOTE | 2016-12-02 05:00 | NUR ---
RN NOTES PER DR PUTNAM DO NOT USE THE GT UNTIL SEEN BY GI, FOR GT PLACEMENT.
--- NOTE | 2016-12-02 06:07 | NUR ---
RN NOTES BLOOD SUGAR CHECKED 125 MG/DL, NO INSULIN COVERAGE PER SLIDING SCALE AND PT IS ON NPO AND GT FEEDING ON HOLD. WILL CONTINUE TO MONITOR PT.
[2016-12-02 06:44] VITALS: BP 150/97
--- NOTE | 2016-12-02 07:04 | NUR ---
RN NOTES PT ASLEEP, NO SOB, NOT IN DISTRESS, ON MECHANICAL VENT WITH SETTINGS IN PLACE AND TOLERATED WELL. TELE MONITOR READS SINUS RHYTHM WITH HEART RATE AT 78. WITH PERIODS OF AGITATION NOTED. WRIST RESTRAINT ON WITH GOOD CIRCULATION. GT INTACT BUT WILL NO BE USE FOR FEEDING AND MEDS TIL FURTHER ORDER. FOR GI CONSULT FOR GT REPLACEMENT. ALL NEEDS ATTENDED. WILL ENDORSE TO MORNING RN FOR CONTINUITY OF CARE.
--- NOTE | 2016-12-02 07:30 | NUR ---
RN NOTES DOCTOR JERSEY ORDERED NOT TO USE G-TUBE FEEDING AND NOT TO ADMINISTER MEDS UNTIL FURTHER ORDER.
--- NOTE | 2016-12-02 07:47 | NUR ---
RN OPENING NOTES RECEIVED PATIENT IN BED ASLEEP WITH HEAD OF BED ELEVATED, NO SOB OR DISTRESS NOTED. PATIENT ON TELE MONITOR SR HEART RATE OF 90. ALERT AND ORIENTED TIMES 1. IV INTACT AND PATENT. PATIENT IN VENT, SETTINGS A/C 12, VT 500, NIL650, PEEP 5. KEPT PATIENT CLEAN AND COMFORTABLE IN BED, CALL LIGHT WITHIN PATIENT REACH, WILL CONTINUE TO MONITOR ACCORDINGLY.
[2016-12-02] MEDS: ENOXAPARIN SODIUM 30 MG/0.3 ML DISP.SYRIN SQ SCH (08:28)
--- NOTE | 2016-12-02 08:54 | NUR ---
WOUND CARE CONSULT: PT PRESENTS WITH INTACT SKIN. ESCHAR NOTED TO ANTERIOR HEAD AND INCISION TO POSTERIOR HEAD/NECK AREA WITH GAB. NO DRAINAGE NOTED. PT MOVES A LOT PER ENTRY CLERK. PT ON COMFORT GEL MATTRESS. THOM SCORE IS 16. ALL SKIN PROTECTION MEASURES IN PLACE. DISCUSSED WITH NURSING STAFF. MD IN AGREEMENT WITH PLAN OF CARE. Addendum: 12/02/16 at 0857 by NAMRATA COKER WNDNU Amended: Links added.
[2016-12-02] MEDS: TRAMADOL HCL 50 MG TABLET GT SCH ×2 (09:00→21:45)
[2016-12-02] MEDS: LISINOPRIL (20MG) 20 MG TABLET GT SCH (09:00)
[2016-12-02] MEDS: DOCUSATE SODIUM LIQ 100 MG/10 ML UDC GT SCH ×2 (09:00→17:00)
[2016-12-02] MEDS: MULTIVIT, IRON, MIN NO. 8, FA 1 TAB TABLET GT SCH (09:00)
[2016-12-02] MEDS ORDERED: Z GUARD REMEDY 2 OZ OINT TP PRN (09:00)
--- NOTE | 2016-12-02 10:30 | NUR ---
RN NOTES (ENEDINA) CAME TO SEE PATIENT AND I EXPLAINED HER THE PROTOCOL ABOUT THE NEED OF THE RESTRAINTS AND SHE WAS AGREE TO CONTINUE RESTRAINING THE PATIENT IF IT WAS NECESSARY.
[2016-12-02] MEDS: Z GUARD REMEDY 2 OZ OINT TP SCH (10:35)
[2016-12-02] MEDS: PANTOPRAZOLE 40 MG/PACK PACK GT SCH (10:50)
[2016-12-02] MEDS ORDERED: IV SET PRIMARY PUMP SET 1 EA INFUS.SET MC ONE (12:38)
[2016-12-02] MEDS: IPRATROPIUM NEB FS 0.5 MG/2.5 ML AMPUL.NEB NEB SCH ×2 (15:30→20:54)
[2016-12-02 16:00] VITALS: BP 118/83
--- NOTE | 2016-12-02 16:41 | NUR ---
RN NOTES DOCTOR PILI PERFORMED A G-TUBE PLACEMENT AT BEDSIDE.
[2016-12-02] MEDS ORDERED: DIATR MEGLU/DIATRIZOATE SODIUM 30 ML BOTTLE (GASTROGRAPHIN) ONE (17:03)
[2016-12-02 17:26] LABS: ABG BASE EXCESS 12.6 mmol/L; ABG PCO2 60.9 mmHg (35.0-45.0); ABG PH 7.422 (7.350-7.450); ABG PO2 136.2 mmHg (75.0-100.0); COHb 0.4 % (0.5-1.5); MetHb 0.9 % (0.0-1.5); O2Hb 96.7 % (94.0-97.0); SITE, ABG Right Radial; VENT MODE, BG AC 12 500 40% +5
--- NOTE | 2016-12-02 18:55 | NUR ---
RN CLOSING NOTES ALL NEEDS PROVIDED, ATTENDED, AND ANTICIPATED. ON TELE MONITOR SR HEART RATE 90'S. KEPT PATIENT CLEAN AND COMFORTABLE IN BED. CALL LIGHT WITHIN PATIENT REACH, WILL CONTINUE TO MONITOR ACCORDINGLY. ENDORSED TO NEXT SHIFT RN TO CONTINUE CARE.
--- NOTE | 2016-12-02 18:58 | NUR ---
RN NOTES ABG'S TOOK BY GUERLINE FROST AND HE STATED THAT HE INFORMED DOCTOR ABOUT RESULTS
--- NOTE | 2016-12-02 19:30 | NUR ---
BACKWINDER NOTE PER , OKAY TO RESUME MEDICATION ORDERED.
--- NOTE | 2016-12-02 19:30 | NUR ---
MANAGER STARS NOTE RECEIVED PATIENT AWAKE IN BED. NO S/S OF PAIN OR DISTRESS NOTED. VENT IN PLACE WITH SETTINGS ORDERED. IV SITE INTACT WITH FLUIDS RUNNING ORDERED. NEW GTUBE IN PLACE. FLUSHING WELL. PER GLENNY KELLEY TO BEGIN GLYTROL @55ML/HR. GTUBE SITE IS CLEAN AND DRY. NO S/S OF INFECTION NOTED. LOCKE CATHETER IN PLACE, WITH YELLOW URINE DRAINING BY GRAVITY TO COLLECTION BAG. BED LOCEKD AND IN LOWEST POSITION. SIDE RAILS UP, CALL LIGHT WITHIN REACH. WILL CONTINUE TO MONITOR.
[2016-12-02 20:00] VITALS: BP 133/93
[2016-12-02] MEDS: ALBUTEROL FS 2.5 MG/3 ML VIAL.NEB NEB SCH (20:54)
[2016-12-02] MEDS ORDERED: GLYTROL 1,000 ML BAG GT PRN ×2 (21:30→22:00)
[2016-12-02] MEDS ORDERED: GLUCERNA 1,000 ML BOTTLE NG PRN (21:30)
[2016-12-02] MEDS: SENNOSIDES 8.6 MG TABLET GT SCH (21:44)
[2016-12-02 22:00] VITALS: BP 133/93
[2016-12-03] VITALS: BP 113/75
[2016-12-03] MEDS: ALBUTEROL FS 2.5 MG/3 ML VIAL.NEB NEB SCH ×3 (00:05→13:53)
[2016-12-03] MEDS: IPRATROPIUM NEB FS 0.5 MG/2.5 ML AMPUL.NEB NEB SCH ×4 (00:05→14:59)
[2016-12-03] MEDS: IV D5/ 0.9% NACL 1,000 ML IV PRN (00:24)
[2016-12-03] MEDS: BLOOD SUGAR DIAGNOSTIC 1 EACH STRIP IN SCH ×4 (00:25→18:00)
[2016-12-03] MEDS: ZOSYN IVPB 3.375 G in IV D5W 50ml IV SCH ×3 (03:17→14:36)
[2016-12-03 03:28] VITALS: BP 113/75
[2016-12-03 04:00] VITALS: BP 109/57
[2016-12-03] MEDS: LACTULOSE 10 G/15 ML UDC (PYXIS) GT SCH ×2 (05:37→12:29)
--- NOTE | 2016-12-03 06:14 | NUR ---
CONCRETE PLANT LABORER NOTE PATIENT STABLE. NO S/S OF PAIN, RESPIRATORY DISTRESS OR SOB. PT. WITH MECHANICAL VENTILATOR WITH SETTINGS ON ORDERED. PATIENT WAS TURNED AND REPOSITIONED EVERY TWO HOURS. WOUND CARE PERFORMED ORDERED. IV SITE INTACT, WTIH NO INFILTRATION OR REDNESS NOTED. FLUIDS RUNNING ORDERED. GTUBE SITE CDI. FEEDING RUNNING ORDERED WITH NO RESIDUAL NOTED. LOCKE CATHETER IN PLACE, WITH 650ML YELLOW URINE FOUND IN COLLECTION BAG. ABDOMINAL BINDER IN PLACE. ALL NEEDS MET AND ATTENDED TO. WILL ENDORSE TO DAY SHIFT FOR KARLIE.
--- NOTE | 2016-12-03 07:17 | NUR ---
RN OPENING NOTES RECEIVED PATIENT IN BED ASLEEP WITH HEAD OF BED ELEVATED, NO SOB OR DISTRESS NOTED. PATIENT ON TELE MONITOR SR HEART RATE OF 87. ALERT AND ORIENTED TIMES 1, NON VERBAL. PICC LINE INTACT AND PATENT. PATIENT IN VENT, SETTINGS A/C 12, VT 500, [id number], PEEP 5. KEPT PATIENT CLEAN AND COMFORTABLE IN BED, CALL LIGHT WITHIN PATIENT REACH, WILL CONTINUE TO MONITOR ACCORDINGLY
[2016-12-03 08:00] VITALS: BP 106/60
[2016-12-03] MEDS: MULTIVIT, IRON, MIN NO. 8, FA 1 TAB TABLET GT SCH (08:59)
[2016-12-03] MEDS: DOCUSATE SODIUM LIQ 100 MG/10 ML UDC GT SCH ×2 (08:59→17:00)
[2016-12-03 09:00] VITALS: BP 106/60
[2016-12-03] MEDS: LISINOPRIL (20MG) 20 MG TABLET GT SCH (09:00)
[2016-12-03] MEDS: TRAMADOL HCL 50 MG TABLET GT SCH (09:01)
[2016-12-03] MEDS: ENOXAPARIN SODIUM 30 MG/0.3 ML DISP.SYRIN SQ SCH (09:03)
[2016-12-03] MEDS: Z GUARD REMEDY 2 OZ OINT TP SCH (09:04)
[2016-12-03 10:46] LABS: BASOPHILS % (AUTO) 0.2 % (0.0-2.0); EOSINOPHILS % (AUTO) 0.1 % (0.0-6.0); HEMATOCRIT 26 % (39-51); HEMOGLOBIN 8.6 g/dL (13.5-17.5); LYMPHOCYTES % (AUTO) 8.2 % (20.0-44.0); MEAN CORPUSCULAR HEMOGLOBIN 30 PG (26.0-33.0); MEAN CORPUSCULAR HGB CONC 33 g/dl (31.0-36.0); MEAN CORPUSCULAR VOLUME 90 fL (80-96); MONOCYTES # (AUTO) 0.6 /CMM (0.1-1.30); MONOCYTES % (AUTO) 5.5 % (2.0-12.0); NEUTROPHILS # (AUTO) 10.1 /CMM (1.8-8.9); PLATELET COUNT (AUTO) 281 /CMM (150-450); RDW COEFFICIENT OF VARIATION 13.8 (11.5-15.0); RED BLOOD CELL COUNT(AUTO) 2.86 MIL/uL (4.5-6.0); WHITE BLOOD COUNT (AUTO) 11.7 K/uL (4.3-11.0)
[2016-12-03 10:59] LABS: CALCIUM, SERUM 8.8 mg/dL (8.5-10.1); CREATININE 0.7 mg/dL (0.6-1.3)
[2016-12-03 11:20] LABS: ABG BASE EXCESS 9.6 mmol/L; ABG OXYGEN SATURATION 96.6 % (92.0-98.5); ABG PCO2 50.1 mmHg (35.0-45.0); ABG PH 7.457 (7.350-7.450); ABG PO2 93.4 mmHg (75.0-100.0); AaDO2 61.6 mmHg; COHb 1.2 % (0.5-1.5); MetHb 0.7 % (0.0-1.5); O2Hb 94.8 % (94.0-97.0); PEEP,BG 5 cm H2O; SITE, ABG Right Radial; VT, ABG 500 mL
[2016-12-03] MEDS ORDERED: CIPR-262 PO (12:05)
[2016-12-03] MEDS: PANTOPRAZOLE 40 MG/PACK PACK GT SCH (12:29)
--- NOTE | 2016-12-03 17:26 | NUR ---
RN NOTES PATIENT HAD 3 LOOSE BM'S, COLACE HELD.
--- NOTE | 2016-12-03 18:10 | NUR ---
RN NOTES I LEFT A MESSAGE IN 'S NUMBER REGARDING PATIENT'S DISCHARGE.
--- NOTE | 2016-12-03 18:16 | NUR ---
AIRPLANE ELECTRICAL REPAIRER NOTES DISCHARGE INSTRUCTIONS GIVEN TO PATIENT AND [place] AND ABLE TO UNDERSTAND INSTRUCTIONS. PICTURES TAKEN FILE IN THE PATIENT CHART. PNEUMONIA AND FLU VACCINE NOT GIVEN. FLU VACCINE IS OUT OF SEASON, PNEUMONIA VACCINE REFUSED BY . PATIENT LEFT VIA GURNEY ACCOMPANIED WITH TWO EMT'S AND ONE RT IN STABLE CONDITION. NO SOB OR DISTRESS NOTED, NO COMPLAIN OF PAIN NOR CHEST PAIN. VITALS SIGNS CHECKED AND RECORDED. MD AND CHARGE NURSE AWARE.
== END 2016-12-03 18:15 | DRG 254 ==
LOC: ER 15:57 → TELE 20:06
PROVIDERS: ADMIT Family Medicine; ATTEND Family Medicine
PROC: 0D20XUZ Change Feeding Device in Upper Intestinal Tract, External Approach (ICD-10-PCS; principal; 2016-12-01)
PROC: 5A1945Z Respiratory Ventilation, 24-96 Consecutive Hours (ICD-10-PCS; principal; 2016-12-01)
DX: Z43.1 Encounter for attention to gastrostomy (principal); G93.40 Encephalopathy, unspecified; E43 Unspecified severe protein-calorie malnutrition; Z99.11 Dependence on respirator [ventilator] status; G93.1 Anoxic brain damage, not elsewhere classified; J84.9 Interstitial pulmonary disease, unspecified; J96.11 Chronic respiratory failure with hypoxia; I11.0 Hypertensive heart disease with heart failure; I50.32 Chronic diastolic (congestive) heart failure; R13.10 Dysphagia, unspecified; J96.12 Chronic respiratory failure with hypercapnia; R53.2 Functional quadriplegia; D68.59 Other primary thrombophilia; D64.9 Anemia, unspecified; E11.9 Type 2 diabetes mellitus without complications; N39.0 Urinary tract infection, site not specified; I25.2 Old myocardial infarction; R31.29 Other microscopic hematuria; Z79.899 Other long term (current) drug therapy; Z98.2 Presence of cerebrospinal fluid drainage device; E87.5 Hyperkalemia; E83.52 Hypercalcemia; G40.909 Epilepsy, unspecified, not intractable, without status epilepticus; W06.XXXA Fall from bed, initial encounter; Y93.9 Activity, unspecified; Y92.129 Unspecified place in nursing home as the place of occurrence of the external cause; Z87.891 Personal history of nicotine dependence; Z86.74 Personal history of sudden cardiac arrest; Z93.0 Tracheostomy status; K21.9 Gastro-esophageal reflux disease without esophagitis; N40.1 Benign prostatic hyperplasia with lower urinary tract symptoms; Z85.118 Personal history of other malignant neoplasm of bronchus and lung; B96.5 Pseudomonas (aeruginosa) (mallei) (pseudomallei) as the cause of diseases classified elsewhere; Z85.841 Personal history of malignant neoplasm of brain; B96.20 Unspecified Escherichia coli [E. coli] as the cause of diseases classified elsewhere; H40.9 Unspecified glaucoma; J44.9 Chronic obstructive pulmonary disease, unspecified; Z68.21 Body mass index [BMI] 21.0-21.9, adult; Z87.01 Personal history of pneumonia (recurrent)
CPT/HCPCS: 31720; 36415; 36600; 70450-TC; 71010-TC; 74000-TC; 80048-TC; 80076-TC; 81000-TC; 82140-TC; 82962-TC; 83605-TC; 84484-TC; 85025-TC; 85730-TC; 87040-TC; 87081-TC; 87086-TC; 87186-TC; 94002-TC; 94003-TC; 99082-TC; A4606; J0696; J1650; J2060; J2543; J7040; J7042; J7050; J7060; Q0162; Q9963; Z7610

== ENCOUNTER 2016-12-10 00:35 | Inpatient (IN) | payer OTHER ==
[2016-12-10] VITALS (71 sets, daily range): BP systolic 71–181; BP diastolic 13–134
[~2016-12-10] VITALS: Ht 177.8 cm; Wt 71.2 kg
[~2016-12-10 00:35] MED LIST changes: +BISA10SU8 RC; +BLOO-668 IN; +CALC1TAB30 GT; +CIPR-262 PO; -DEXA1TAB GT; -DEXA4TAB GT; +ENOX30DI5 SQ; -ENOX40DI SQ; +INSU100V27 SQ; +IPRA3AMP IH; +LACT10SO7 GT; +LISI-603 GT; +MORP10SO GT; -MORP15TA GT; -MUPI22OI7 TP; +NA P133E RC; +NUT.237L31 GT; -PIPE3.379 IV; -PRIM50TA GT
--- NOTE | 2016-12-10 00:54 | NUR ---
FIO2 INCREASED TO 40%.
[2016-12-10] MEDS ORDERED: IV NS 0.9% 1,000 ML BAG IV ONE ×2 (01:00→02:00)
[2016-12-10] MEDS ORDERED: IV SET PRIMARY 1 EA INFUS.SET MC ONE ×2 (01:03→01:49)
[2016-12-10] MEDS ORDERED: IV NS 0.9% 1,000 ML ONE ×3 (01:03→05:11)
--- NOTE | 2016-12-10 01:05 | NUR ---
CXR IN PROGRESS AT THE BEDSIDE.
[2016-12-10 01:07] LABS: HEMATOCRIT 30 % (39-51); HEMOGLOBIN 9.6 g/dL (13.5-17.5); LYMPHOCYTES # (AUTO) 0.4 /CMM (0.8-4.8); LYMPHOCYTES % (AUTO) 0.9 % (20.0-44.0); MEAN CORPUSCULAR HEMOGLOBIN 30 PG (26.0-33.0); MEAN CORPUSCULAR HGB CONC 33 g/dl (31.0-36.0); MEAN CORPUSCULAR VOLUME 92 fL (80-96); MONOCYTES # (AUTO) 0.8 /CMM (0.1-1.30); MONOCYTES % (AUTO) 1.7 % (2.0-12.0); NEUTROPHILS # (AUTO) 44.6 /CMM (1.8-8.9); NEUTROPHILS % (AUTO) 97.4 % (43.0-81.0); PLATELET COUNT (AUTO) 391 /CMM (150-450); RDW COEFFICIENT OF VARIATION 14.2 (11.5-15.0); RED BLOOD CELL COUNT(AUTO) 3.21 MIL/uL (4.5-6.0)
[2016-12-10] MEDS ORDERED: IOHEXOL-300 100 ML VIAL IV ONE (01:07)
[2016-12-10] MEDS ORDERED: IV NS 0.9% 250 ML IV ONE (01:07)
[2016-12-10 01:10] LABS: WHITE BLOOD COUNT (AUTO) 45.8 K/uL (4.3-11.0)
[2016-12-10 01:16] LABS: CALCIUM, SERUM 9.7 mg/dL (8.5-10.1); CHLORIDE 91 mmol/L (98-107); GLUCOSE 171 mg/dL (74-106); POTASSIUM 4.7 mmol/L (3.5-5.1); SODIUM SERUM 134 mmol/L (136-145); UREA NITROGEN, BLOOD 20 mg/dL (7-18)
[2016-12-10 01:17] LABS: INR 1.09 (0.87-1.13); PROTHROMBIN TIME 11.7 SECS (9.5-12.7)
[2016-12-10 01:21] LABS: CARBON DIOXIDE 42 mmol/L (21-32)
[2016-12-10 01:22] LABS: TROPONIN I < 0.017 ng/mL (0.00-0.056)
[2016-12-10] MEDS ORDERED: GENTAMICIN 120 MG in IV D5W 50 ML IV ONE (01:30)
[2016-12-10] MEDS ORDERED: VANCOMYCIN 1 GM in IV D5W 250 ML IV ONE (01:30)
[2016-12-10] MEDS ORDERED: PIPERACILLIN /TAZOBACTAM 3.375 G in IV D5W 50 ML IV ONE (01:30)
--- NOTE | 2016-12-10 01:35 | NUR ---
PT LEFT FOR CT VIA GURNEY.
--- NOTE | 2016-12-10 01:48 | NUR ---
PT RETURNED FROM CT.
[2016-12-10] MEDS ORDERED: GENTAMICIN 80 MG/2 ML VIAL ONE (01:49)
[2016-12-10] MEDS ORDERED: PIPERACILLIN /TAZOBACTAM 3.375 G VIAL IV ONE ×2 (01:49→05:10)
[2016-12-10] MEDS ORDERED: IV SET PRIMARY PUMP SET 1 EA INFUS.SET MC ONE ×6 (01:50→20:28)
[2016-12-10] MEDS ORDERED: IV D5W 50 ML IV ONE ×2 (01:52→05:11)
--- NOTE | 2016-12-10 01:55 | NUR ---
OLD LOCKE CATH REMOVED PER DR. HGOAN. NEW LOCKE CATH INSERTED. APPROX 5 ML URINE IN THE LOCKE TUBE NOTED.
[2016-12-10 02:06] LABS: BAND % (MANUAL) 30 % (0.0-5.0); LYMPHOCYTES % (MANUAL) 2 % (16-48); NEUTROPHILS % (MANUAL) 68 (42-76)
[2016-12-10] MEDS ORDERED: VANCOMYCIN 1 GM VIAL ONE (02:15)
--- NOTE | 2016-12-10 02:57 | NUR ---
PT APPEARS TO BE RESTING COMFORTABLY WITH NO S/S OF PAIN OR DISTRESS. NO DIAPHORESIS NOTED. RESP EVEN AND UNLABORED.
--- NOTE | 2016-12-10 03:12 | NUR ---
CALLING REPORT TO ICU NURSE.
--- NOTE | 2016-12-10 03:13 | NUR ---
ICU NURSE HAS TO CALL BACK.
[2016-12-10 03:20] LABS: BILIRUBIN,DIRECT 0.1 mg/dL (0.0-0.2); BILIRUBIN,TOTAL 0.2 mg/dL (0.2-1.0)
--- NOTE | 2016-12-10 03:21 | NUR ---
CALLING KEL MCCAIN FOR REPORT.
--- NOTE | 2016-12-10 03:40 | NUR ---
CALLED VILMA TO EXPIDITE RADIOLOGIST REPORT FOR CT IMAGING.
--- NOTE | 2016-12-10 03:46 | NUR ---
DR HOGAN IS AT THE BEDSIDE.
[2016-12-10 03:48] LABS: ABG BASE EXCESS 11.8 mmol/L; ABG PCO2 73.2 mmHg (35.0-45.0); ABG PH 7.346 (7.350-7.450); ABG PO2 36.9 mmHg (75.0-100.0); COHb 1.3 % (0.5-1.5); MetHb 1.4 % (0.0-1.5); O2Hb 67.1 % (94.0-97.0); PEEP,BG 5 cm H2O
[2016-12-10] MEDS ORDERED: DEXAMETHASONE SOD PHOSPHATE 10 MG/ML VIAL ONE (04:19)
--- NOTE | 2016-12-10 04:21 | NUR ---
MADE PANEL CALL; SOHAM GARAY TO BE PAGED.
[2016-12-10] MEDS ORDERED: DEXAMETHASONE SOD PHOSPHATE 4 MG/ML VIAL IV ONE (04:30)
--- NOTE | 2016-12-10 04:39 | NUR ---
PT TRANSPORTED TO ICU VIA GURNEY PER PROTOCOL. RT WITH PT.
--- NOTE | 2016-12-10 04:40 | NUR ---
GASTROENTEROLOGY TEACHER: RECEIVED VENT. DEPENDENT PT VIA TRACH AND TOLERATING VENT SETTINGS ORDERED. ALERT AND AWAKE, ABLE TO FOLLOW SIMPLE COMMANDS. ST WT HR IN LOW 100s ON FIELD ACCOUNT MANAGER. 2ND BAG OF NS BOLUS INFUSING ON JEANNIE PICC LINE. BODY ASSESSMENT DONE. ADMITTED FOR ACUTE ON CHRONIC HYPOXIC RESP. FAILURE WT SECONDARY DX OF PNA. PT NOTED WT ABDOMINAL DISTENTION WT HYPOACTIVE BOWEL SOUNDS ON FOUR QUADRANTS. ALSO NOTED WT NECK SWELLING. NO C/O PAIN AT THIS TIME. GT CLAMPED. F/C IN PLACE WT NO URINE OUTPUT AT THIS TIME. SAFETY PRECAUTION NOTED. WILL CONTINUE TO MONITOR.
[2016-12-10] MEDS ORDERED: Z GUARD REMEDY 2 OZ OINT TP PRN (05:00)
[2016-12-10] MEDS ORDERED: NA PHOS,M-B/NA PHOS,DI-BA 1 EA ENEMA RC PRN ×2 (05:00)
[2016-12-10] MEDS ORDERED: LEVOFLOXACIN 500 MG /D5W 100ML 100 ML IV SCH (05:00)
[2016-12-10] MEDS ORDERED: DEXTROSE 50%-WATER 50 ML DISP.SYRIN IV PRN (05:00)
[2016-12-10] MEDS ORDERED: ONDANSETRON HCL/PF 4 MG/2 ML VIAL IVP PRN (05:00)
[2016-12-10] MEDS ORDERED: MORPHINE SULFATE INJ 2 MG/ML DISP.SYRIN IV PRN (05:00)
[2016-12-10] MEDS ORDERED: MAG HYDROX/AL HYDROX/SIMETH 30 ML UDC PO PRN (05:00)
[2016-12-10] MEDS ORDERED: ACETAMINOPHEN 325 MG TABLET PO PRN (05:00)
[2016-12-10] MEDS ORDERED: BISACODYL SUPP (10 MG) 10 MG/SUPP.RECT SUPP.RECT RC PRN (05:00)
[2016-12-10] MEDS ORDERED: HYDROCODONE/APAP 5/325MG 1 EACH TABLET PO PRN (05:00)
[2016-12-10] MEDS ORDERED: hydrALAZINE HCL 10 MG TABLET GT PRN (05:00)
[2016-12-10] MEDS ORDERED: MAGNESIUM HYDROXIDE 30 ML UDC PO PRN (05:00)
[2016-12-10] MEDS ORDERED: diphenhydrAMINE HCL 25 MG CAPSULE PO PRN (05:00)
[2016-12-10] MEDS ORDERED: ZOLPIDEM TARTRATE 5 MG TABLET PO PRN (05:00)
[2016-12-10] MEDS ORDERED: Medication Not On Formulary EA (Ipratropium/Albuterol Sulfate (Duoneb 2.5-0.5 Mg/3 Ml So IH PRN (05:00)
[2016-12-10] MEDS ORDERED: MORPHINE SULFATE 10 MG GT PRN (05:00)
[2016-12-10] MEDS ORDERED: ENOXAPARIN SODIUM 40 MG/0.4 ML DISP.SYRIN SQ ONE (05:10)
[2016-12-10] MEDS ORDERED: SECONDARY IV SET 1 EA INFUS.SET MC ONE ×2 (05:11→11:51)
[2016-12-10] MEDS: IV NS 0.9% 1,000 ML IV PRN ×2 (05:16→20:33)
[2016-12-10] MEDS: ENOXAPARIN SODIUM 40 MG/0.4 ML DISP.SYRIN SQ SCH (05:17)
[2016-12-10 05:23] LABS: HEMATOCRIT 29 % (39-51); HEMOGLOBIN 9.4 g/dL (13.5-17.5); LYMPHOCYTES # (AUTO) 0.7 /CMM (0.8-4.8); LYMPHOCYTES % (AUTO) 1.7 % (20.0-44.0); MEAN CORPUSCULAR HEMOGLOBIN 30 PG (26.0-33.0); MEAN CORPUSCULAR HGB CONC 33 g/dl (31.0-36.0); MEAN CORPUSCULAR VOLUME 92 fL (80-96); MONOCYTES # (AUTO) 0.9 /CMM (0.1-1.30); MONOCYTES % (AUTO) 2.3 % (2.0-12.0); NEUTROPHILS # (AUTO) 39.2 /CMM (1.8-8.9); PLATELET COUNT (AUTO) 393 /CMM (150-450); RDW COEFFICIENT OF VARIATION 14.4 (11.5-15.0); RED BLOOD CELL COUNT(AUTO) 3.09 MIL/uL (4.5-6.0)
[2016-12-10 05:26] LABS: WHITE BLOOD COUNT (AUTO) 40.8 K/uL (4.3-11.0)
[2016-12-10] MEDS ORDERED: LEVOFLOXACIN 500 MG /D5W 100ML 100 ML IV ONE (05:29)
[2016-12-10] MEDS ORDERED: ALBUTEROL FS 2.5 MG/0.5 ML VIAL.NEB NEB PRN (05:30)
[2016-12-10] MEDS ORDERED: IPRATROPIUM NEB FS 0.5 MG/2.5 ML AMPUL.NEB NEB PRN (05:30)
[2016-12-10] MEDS: BLOOD SUGAR DIAGNOSTIC 1 EACH STRIP IN SCH ×4 (05:34→23:13)
[2016-12-10 05:55] LABS: BAND % (MANUAL) 41 % (0.0-5.0); BILIRUBIN,TOTAL 0.3 mg/dL (0.2-1.0); CALCIUM, SERUM 8.9 mg/dL (8.5-10.1); CREATININE 0.7 mg/dL (0.6-1.3); LYMPHOCYTES % (MANUAL) 2 % (16-48); MAGNESIUM 2.1 mg/dL (1.8-2.4); MONOCYTES % (MANUAL) 8 % (0-11.0); NEUTROPHILS % (MANUAL) 49 (42-76); PHOSPHORUS 3.4 mg/dL (2.5-4.9); POTASSIUM 4.9 mmol/L (3.5-5.1); TOTAL PROTEIN, SERUM 6.7 g/dL (6.4-8.2)
[2016-12-10] MEDS ORDERED: PIPERACILLIN /TAZOBACTAM 3.375 G in IV D5W 100 ML IV SCH (06:00)
[2016-12-10] MEDS ORDERED: Medication Not On Formulary EA (Ipratropium/Albuterol Sulfate (Duoneb 2.5-0.5 Mg/3 Ml So IH SCH (07:35)
[2016-12-10] MEDS ORDERED: ZOLPIDEM TARTRATE 5 MG TABLET GT PRN (08:39)
[2016-12-10] MEDS ORDERED: diphenhydrAMINE HCL ELIX 25 MG/10 ML UDC PO PRN (08:40)
[2016-12-10] MEDS: DOCUSATE SODIUM LIQ 100 MG/10 ML UDC GT SCH ×2 (08:42→17:39)
[2016-12-10] MEDS: PANTOPRAZOLE 40 MG VIAL IV SCH (08:42)
[2016-12-10] MEDS: methylPREDNISolone SOD SUCC 125 MG/2ML VIAL IV SCH (08:42)
[2016-12-10] MEDS: LISINOPRIL (20MG) 20 MG TABLET GT SCH (08:43)
[2016-12-10] MEDS ORDERED: diphenhydrAMINE HCL ELIX 25 MG/10 ML UDC GT PRN (08:43)
--- NOTE | 2016-12-10 08:45 | NUR ---
PLATE MILL HAND Patient restless, agitated, removing cardiac leads and lines. Diaphoretic with elevated blood pressure and tachypneic on mechanical ventilator. Suctioned with large thick yellow secretions. Patient looks uncomfortable, turning and very restless. morphine 2mg iv and norco given. blood sugar checked- 129.
[2016-12-10] MEDS: MORPHINE SULFATE INJ 2 MG/ML DISP.SYRIN IV PRN (08:46)
[2016-12-10] MEDS: MULTIVITAMIN LIQ 5 ML UDC GT SCH (09:00)
[2016-12-10] MEDS ORDERED: TIOTROPIUM BROMIDE 6 CAP/BOX CAP.W.DEV IH SCH (09:00)
[2016-12-10] MEDS ORDERED: Medication Not On Formulary EA (Calcium Carbonate/Vitamin D3 (Os-Cal 500+D Tablet) 1 EAC GT SCH (09:00)
[2016-12-10] MEDS ORDERED: LORAZEPAM INJ 2 MG/ML VIAL IV PRN (09:30)
[2016-12-10] MEDS ORDERED: NOREPINEPHRINE 8 MG in IV D5W 500 ML IV PRN (09:30)
--- NOTE | 2016-12-10 09:30 | NUR ---
MANAGER SUBWAY Patient calm down, sleeping, opens eyes with pain. Now hypotensive with SBP 60's. Dr. Buenrostro at bedside ordered Levophed gtt. Addendum: 12/10/16 at 1125 by ARINA HERNANDEZ RN Patient now DNR as ordered by Dr. Buenrostro.
[2016-12-10 10:17] LABS: ABG OXYGEN SATURATION 95.5 % (92.0-98.5); ABG PCO2 56.7 mmHg (35.0-45.0); ABG PH 7.409 (7.350-7.450); ABG PO2 81.9 mmHg (75.0-100.0); AaDO2 138.1 mmHg; COHb 0.4 % (0.5-1.5); MetHb 0.9 % (0.0-1.5); O2Hb 94.3 % (94.0-97.0); PEEP,BG 0 cm H2O; SITE, ABG Right Radial; VT, ABG 500 mL
[2016-12-10] MEDS: NOREPINEPHRINE 8 MG in IV D5W 500 ML IV PRN ×2 (10:42→21:29)
--- NOTE | 2016-12-10 11:25 | NUR ---
LITHOPONE CHARGER Attempt made to call Oncology office for medical records Phone #: [phone]. Office is currently close and to open on regular office ours.
[2016-12-10] MEDS ORDERED: FEE PK DOSING 1 MIN EA MC ONE ×2 (11:27)
[2016-12-10] MEDS: IPRATROPIUM NEB FS 0.5 MG/2.5 ML AMPUL.NEB NEB SCH ×3 (11:49→19:28)
[2016-12-10] MEDS: ALBUTEROL FS 2.5 MG/0.5 ML VIAL.NEB NEB SCH ×3 (11:50→19:28)
[2016-12-10] MEDS: VANCOMYCIN 1 GM in IV D5W 250 ML IV SCH ×2 (11:50→20:28)
[2016-12-10] MEDS: PIPERACILLIN /TAZOBACTAM 4.5 G in IV D5W 50 ML IV SCH ×3 (12:32→23:12)
[2016-12-10] MEDS: PROPOFOL 100 ML IV PRN ×2 (12:32→20:28)
[2016-12-10] MEDS: INSULIN REGULAR, HUMAN 100 UNIT/ML 3 ML VIAL SQ PRN ×3 (12:34→23:15)
[2016-12-10] MEDS: LACTULOSE 10 G/15 ML UDC (PYXIS) GT SCH ×2 (17:39→20:28)
--- NOTE | 2016-12-10 19:30 | NUR ---
PT RECEIVED TRACH ON VENT AC 18,500,40%.
[2016-12-10] MEDS ORDERED: NOREPINEPHRINE 4 MG/4 ML AMPUL IV ONE (21:19)
[2016-12-10] MEDS ORDERED: IV D5W 500 ML IV ONE (21:19)
[2016-12-10] MEDS ORDERED: SENNOSIDES 8.6 MG TABLET GT SCH (22:00)
[2016-12-11] VITALS (60 sets, daily range): BP systolic 53–155; BP diastolic 35–90
[2016-12-11] MEDS: IPRATROPIUM NEB FS 0.5 MG/2.5 ML AMPUL.NEB NEB SCH ×4 (00:16→11:33)
[2016-12-11] MEDS: ALBUTEROL FS 2.5 MG/0.5 ML VIAL.NEB NEB SCH ×4 (00:16→11:33)
[2016-12-11 03:12] LABS: HEMATOCRIT 28 % (39-51); HEMOGLOBIN 9.1 g/dL (13.5-17.5); LYMPHOCYTES # (AUTO) 0.6 /CMM (0.8-4.8); LYMPHOCYTES % (AUTO) 1.7 % (20.0-44.0); MEAN CORPUSCULAR HEMOGLOBIN 30 PG (26.0-33.0); MEAN CORPUSCULAR HGB CONC 33 g/dl (31.0-36.0); MEAN CORPUSCULAR VOLUME 91 fL (80-96); MONOCYTES # (AUTO) 8.8 /CMM (0.1-1.30); MONOCYTES % (AUTO) 25.9 % (2.0-12.0); NEUTROPHILS # (AUTO) 24.7 /CMM (1.8-8.9); NEUTROPHILS % (AUTO) 72.4 % (43.0-81.0); PLATELET COUNT (AUTO) 422 /CMM (150-450); RDW COEFFICIENT OF VARIATION 14.6 (11.5-15.0); RED BLOOD CELL COUNT(AUTO) 3.03 MIL/uL (4.5-6.0)
[2016-12-11 03:15] LABS: WHITE BLOOD COUNT (AUTO) 34.1 K/uL (4.3-11.0)
[2016-12-11 03:27] LABS: CALCIUM, SERUM 8.7 mg/dL (8.5-10.1); CREATININE 0.7 mg/dL (0.6-1.3); MAGNESIUM 1.9 mg/dL (1.8-2.4); PHOSPHORUS 2.9 mg/dL (2.5-4.9); POTASSIUM 4.3 mmol/L (3.5-5.1)
[2016-12-11 03:48] LABS: BAND % (MANUAL) 29 % (0.0-5.0); LYMPHOCYTES % (MANUAL) 4 % (16-48); MONOCYTES % (MANUAL) 26 % (0-11.0); NEUTROPHILS % (MANUAL) 41 (42-76)
[2016-12-11] MEDS: VANCOMYCIN 1 GM in IV D5W 250 ML IV SCH (04:00)
--- NOTE | 2016-12-11 04:50 | NUR ---
BICYCLE INSPECTOR PITA HELD DUE TO HIGH PITA TROUGH LEVEL . WILL ENDORSE TO AM SHIFT
[2016-12-11] MEDS ORDERED: LEVOFLOXACIN 750 MG /D5W 150ML 750 MG in PREMIX 1 EA IV SCH (05:00)
[2016-12-11] MEDS: LACTULOSE 10 G/15 ML UDC (PYXIS) GT SCH (05:15)
[2016-12-11] MEDS: PIPERACILLIN /TAZOBACTAM 4.5 G in IV D5W 50 ML IV SCH (05:16)
[2016-12-11] MEDS: ENOXAPARIN SODIUM 40 MG/0.4 ML DISP.SYRIN SQ SCH (05:16)
[2016-12-11] MEDS: BLOOD SUGAR DIAGNOSTIC 1 EACH STRIP IN SCH (05:17)
[2016-12-11] MEDS: INSULIN REGULAR, HUMAN 100 UNIT/ML 3 ML VIAL SQ PRN (05:24)
[2016-12-11] MEDS: PROPOFOL 100 ML IV PRN (05:27)
--- NOTE | 2016-12-11 07:30 | NUR ---
FAN INSTALLER; ASSESSMENT RECEIVED PT VENTED VIA TRACH SEE FLOW SHEET FOR VENT SETTINGS. PT SEDATED ON DIPRIVAN DRIP AT 12MCG/KG./MIN. PT IS AROUSABLE TO TACTILE STIMULI. PT ABLE TO FOLLOW SIMPLE COMMANDS. PT CURRENTLY ON LEVOPHED AT 6MCG/MIN TO KEEP SBP GREATER THAN 90, WILL TITRATE ACCORDINGLY. PEG CLAMPED AT THIS TIME. LOCKE CATH INTACT DRAINING TO GRAVITY CLEAR YELLOW URINE.NO ACUTE DISTRESS NOTED WILL CONTINUE TO MONITOR CLOSELY. Addendum: 12/11/16 at 0920 by JULIET MAI RN PICC LINE TO RIGHT UPPER ARM, NOTED WHITE PORT UNABLE TO FLUSH OR WITHDRAW BLOOD. MARCUS AND RED PORT FUNCTIONING CORRECTLY
[2016-12-11] MEDS: MORPHINE SULFATE INJ 2 MG/ML DISP.SYRIN IV PRN (08:10)
[2016-12-11] MEDS: DOCUSATE SODIUM LIQ 100 MG/10 ML UDC GT SCH (08:10)
[2016-12-11] MEDS: PANTOPRAZOLE 40 MG VIAL IV SCH (08:10)
[2016-12-11] MEDS: methylPREDNISolone SOD SUCC 125 MG/2ML VIAL IV SCH (08:10)
[2016-12-11] MEDS: LISINOPRIL (20MG) 20 MG TABLET GT SCH (08:10)
[2016-12-11] MEDS: MULTIVITAMIN LIQ 5 ML UDC GT SCH (08:35)
[2016-12-11] MEDS ORDERED: GLYTROL 1,000 ML BAG GT PRN (09:00)
[2016-12-11] MEDS ORDERED: Z GUARD REMEDY 2 OZ OINT TP SCH (09:00)
[2016-12-11] MEDS ORDERED: NOREPINEPHRINE 8 MG in IV D5W 500 ML IV PRN (09:00)
--- NOTE | 2016-12-11 09:02 | NUR ---
MACHINE STAKER; PRIMARY DR. DAVEY AT BEDSIDE UPDATE WAS GIVEN DISCUSSED NPO STATUS. NEW ORDERS GIVEN TO START TUBE FEEDING. ALSO DISCUSSED THAT PT IS ON LEVOPHED DRIP AND LISINOPRIL ORDERS GIVEN TO D/C LISINOPRIL. ORDERS ENTERED AND WILL F/U WITH PHARMACY
--- NOTE | 2016-12-11 10:49 | NUR ---
MERCHANDISE CLERK; PTS AT BEDSIDE UPDATE WAS GIVEN. DISCUSSED REGARDING COMFORT CARE PER WIFES WISHES WOULD LIKE TO START PT ON COMFORT CARE FOCUS. DR. PETAR CALVO PAGED. AWAITING FOR CALL BACK.
--- NOTE | 2016-12-11 11:30 | NUR ---
MULTIPLE D/W REGARDING OPTIONS OF CARE. IN THE LAST 6 WEEKS THREE ONCOLOGY OPINIONS/CONSULTS WERE GIVEN TO THE INCLUDING ONE BY [facility] DOCTOR, ONE BY DR BRITO AND ONE BY DR VARGAS. SPECIFICALLY STATES HER TOLD HER NOT TO KEEP HIM ALIVE ON MACHINES. DR CALVO TELEPHONICALLY CONCURS WITH 'S REQUEST TO CHANGE TO COMFORT FOCUSSED CARE
--- NOTE | 2016-12-11 11:43 | NUR ---
I MET AT BEDSIDE WITH DR OVIEDO AND MRS VILLEGAS- REITERATES THAT SHE WANTS ALL MACHINES AND MEDICINES TO STOP INCLUDING VENTILATOR AND TO START FULL COMFORT CARE AND STOP ALL AGGRESSIVE RX. DR SAVAGE ALSO SPOKE IN PERSON TO THE ABOUT HER WISHES
[2016-12-11] MEDS ORDERED: IV NS 0.9% 1,000 ML IV PRN (11:57)
[2016-12-11] MEDS ORDERED: MORPHINE SULFATE PF DRIP 250 MG in IV D5W 240 ML IV PRN (12:00)
[2016-12-11] MEDS ORDERED: SCOPOLAMINE HBR 1 EA PATCH.TD72 TD SCH (12:30)
[2016-12-11] MEDS ORDERED: VANCOMYCIN 1 GM in IV D5W 250 ML IV SCH (13:00)
[2016-12-11] MEDS ORDERED: SET PCA INFUSE SET 1 EA INFUS.SET MC ONE (13:06)
[2016-12-11] MEDS: LORAZEPAM INJ 2 MG/ML VIAL IV PRN ×2 (13:58→15:53)
--- NOTE | 2016-12-11 15:54 | NUR ---
INDUSTRIAL SPRAYPAINTER; VENT CHANGES VENT CHANGES DONE PLACED PT ON CPAP MODE. NOTED PTS AGONAL BREATHING. MORPHINE DRIP INCREASED NOW TO 10MG/HR. ATIVAN 2MG IVP GIVEN. FAMILY AT BEDSIDE SUPPORT GIVEN.
--- NOTE | 2016-12-11 16:00 | NUR ---
DIRECTOR OF CASINO MARKETING; NOTED PT BRADYCARDIA. CHARGE NURSE Eric BAUTISTA RN MADE AWARE. PT ON COMFORT CARE. EMOTIONAL SUPPORT GIVEN TO PTS AND FAMILY.
--- NOTE | 2016-12-11 16:05 | NUR ---
PT PRONOUNCED . COMFORT FOCUSSED CARE STATUS. FAMILY AT BEDSIDE. WITH TRACH ON CPAP FIO2 28%. PEEP PLUS 5. PT APNEIC. NO OBTAINABLE PULSES OR BP. NO AUDIBLE HEART TONES. PUPILS FIXED AND DILATED.
--- NOTE | 2016-12-11 16:54 | NUR ---
DECLINED BY [facility]. ONGOING FAMILY SUPPORT. MORTUARY ARRANGEMENTS MADE
== END 2016-12-11 16:05 | disposition expired | DRG 720 ==
LOC: ER 00:40 → ICU 04:24
PROVIDERS: ADMIT Family Medicine; ATTEND Family Medicine
PROC: 5A1945Z Respiratory Ventilation, 24-96 Consecutive Hours (ICD-10-PCS; principal; 2016-12-10)
DX: A41.9 Sepsis, unspecified organism (principal); J96.21 Acute and chronic respiratory failure with hypoxia; R65.21 Severe sepsis with septic shock; Z99.11 Dependence on respirator [ventilator] status; E43 Unspecified severe protein-calorie malnutrition; G93.40 Encephalopathy, unspecified; J18.9 Pneumonia, unspecified organism; Z93.0 Tracheostomy status; Z51.5 Encounter for palliative care; G91.9 Hydrocephalus, unspecified; E87.2 Acidosis; C79.31 Secondary malignant neoplasm of brain; C34.90 Malignant neoplasm of unspecified part of unspecified bronchus or lung; R53.2 Functional quadriplegia; R13.10 Dysphagia, unspecified; E87.1 Hypo-osmolality and hyponatremia; D64.9 Anemia, unspecified; E11.9 Type 2 diabetes mellitus without complications; G40.909 Epilepsy, unspecified, not intractable, without status epilepticus; F32.9 Major depressive disorder, single episode, unspecified; Z66 Do not resuscitate; K21.9 Gastro-esophageal reflux disease without esophagitis; Z87.891 Personal history of nicotine dependence; Z93.1 Gastrostomy status; Z68.22 Body mass index [BMI] 22.0-22.9, adult; Z98.2 Presence of cerebrospinal fluid drainage device; J05.10 Acute epiglottitis without obstruction; Z87.440 Personal history of urinary (tract) infections; Z87.01 Personal history of pneumonia (recurrent); R59.0 Localized enlarged lymph nodes; I11.0 Hypertensive heart disease with heart failure; I50.9 Heart failure, unspecified; J44.0 Chronic obstructive pulmonary disease with (acute) lower respiratory infection; Z79.899 Other long term (current) drug therapy
CPT/HCPCS: 31720; 36415; 36600; 70487-TC; 70491-TC; 71010-TC; 80048-TC; 80053-TC; 80202-TC; 82247-TC; 82248-TC; 82803-TC; 82962-TC; 83605-TC; 83690-TC; 83735-TC; 84100-TC; 84484-TC; 85025-TC; 85610-TC; 87040-TC; 87070-TC; 87081-TC; 87186-TC; 87400; 94002-TC; 94003-TC; 94640-TC; 94762-TC; 99082-TC; A4216; A4217; A4606; C9113; J1100; J1580; J1650; J1815; J1956; J2060; J2270; J2274; J2543; J2930; J3370; J3490; J7030; J7050; J7060; Q9967; Z7610